=== PATIENT | male | born 1935 | race Caucasian/White ===

== ENCOUNTER 2019-10-15 17:18 | Emergency (ER) | payer MEDICARE ==
--- OUTSIDE RECORDS SUMMARY | 2019-10-15 17:26 | XMS REPORT ---
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 Clinician (SIG) Name Name No Known No Known No None None None Medications Medications For This For This Patient Patient Procedures This patient has no known procedures. Results This patient has no known results.
--- OUTSIDE RECORDS SUMMARY | 2019-10-15 17:26 | XMS REPORT ---
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 Clinician (SIG) Name Name polyethylen polyethylen Yes Jacqueline Unknown Unknown e glycol e glycol 10-14 [facility] 3350 17 3350 17 gram/dose gram/dose oral powder oral powder apixaban 5 apixaban 5 2019- Yes Jacqueline Unknown Unknown mg tablet mg tablet 10-14 [facility] Procedures This patient has no known procedures. Results This patient has no known results.
--- NOTE | 2019-10-15 19:42 | UC ---
Respiratory Complaint HPI - HPI Summary HPI Summary: BROUGHT BY SON WITH 2 WEEKS OF COUGHING, CONGESTION AND FATIGUE. NO FEVER, NAUSEA/VOMITING. ALSO COMPLAINING OF SEVERAL DAYS OF BILATERAL FLANK PAIN. PATIENT HAS A HISTORY OF FREQUENT UTI. JUST MOVED HERE FROM [place] 3 WEEKS AGO TO BE CLOSER TO FAMILY. - History of Current Complaint Chief Complaint: UCBackPain Stated Complaint: RESP COMPLAINT Time Seen by Provider: 10/15/19 19:13 Hx Obtained From: Patient, Family/Back Tender Cylinder - SON Onset/Duration: Gradual Onset, Lasting Weeks, Still Present Timing: Constant Severity Initially: Moderate Severity Currently: Moderate Pain Intensity: 7 Pain Scale Used: 0-10 Numeric Character: Cough: Nonproductive Aggravating Factors: Recumbent Position Alleviating Factors: Nothing Associated Signs And Symptoms: Positive: URI, Nasal Congestion. Negative: Dyspnea, Fever, Wheezing - Allergies/Home Medications Allergies/Adverse Reactions: Allergies Allergy/AdvReac Type Severity Reaction Status Date / Time No Known Allergies Allergy Verified 10/15/19 17:43 Home Medications: Home Medications Apixaban [Eliquis] 10/15/19 [History] PMH/Surg Hx/FS Hx/Imm Hx Cardiovascular History: Deep Vein Thrombosis - Surgical History Surgery Procedure, Year, and Place: pt broke his back 4 months ago and he had the "cement put in " also had hip surgery - Family History Known Family History: Positive: Unknown - Social History Alcohol Use: None Substance Use Type: None Smoking Status (MU): Never Smoked Tobacco Review of Systems All Other Systems Reviewed And Are Negative: Yes Constitutional: Positive: Fatigue ENT: Positive: Sore Throat, Nasal Discharge Respiratory: Positive: Cough. Negative: Shortness Of Breath Cardiovascular: Positive: Negative Gastrointestinal: Positive: Negative Genitourinary: Positive: Other - FLANK PAIN Musculoskeletal: Positive: Edema Physical Exam Triage Information Reviewed: Yes Appearance: Well-Appearing, No Pain Distress, Well-Nourished, Other: - GENERAL RESTING TREMOR Vital Signs: Initial Vital Signs Temp 99.5 F 10/15/19 17:33 Pulse 102 10/15/19 17:33 Resp 16 10/15/19 17:33 BP 131/84 10/15/19 17:33 Pulse Ox 99 10/15/19 17:33 Vital Signs Reviewed: Yes Eyes: Positive: Conjunctiva Clear ENT: Positive: Hearing grossly normal Neck: Positive: Supple, Nontender, No Lymphadenopathy Respiratory: Positive: No respiratory distress, No accessory muscle use, Crackles - BILATERAL BASES Cardiovascular: Positive: Tachycardia, Other: - IRREGULARLY IRREGULAR Abdomen Description: Positive: Soft Musculoskeletal: Positive: Edema @ - 1+ PITTING EDEMA Neurological: Positive: Alert Psychological: Positive: Normal Response To Family, Age Appropriate Behavior Skin: Negative: Rashes Diagnostics - EKG Cardiac Rate: NL - 96BPM Cardiac Rhythm: AFib: New Respiratory Course/Dx - Course Course Of Treatment: PATIENT BROUGHT TO URGENT CARE BY HIS SON WITH A COMPLAINT OF 2 WEEKS OF PERSISTENT COUGH AND FATIGUE. NO FEVER, NAUSEA/VOMITING. HE IS ALSO COMPLAINING OF BILATERAL FLANK PAIN. SON REPORTS THAT AT BASELINE PATIENT HAS A HARD TIME PRODUCING URINE AND HAS A HISTORY OF FREQUENT UTI. ON EXAM PATIENT IS MILDLY TACHYCARDIC WITH AN IRREGULAR HEART BEAT AND BILATERAL RALES IN THE LUNG BASES. EKG WITH AFIB. PT DENIES H/O AFIB IN THE PAST. HE HAS MILD PITTING EDEMA IN HIS FEET. HE ALSO HAS A HISTORY OF DVT AND IS ON ELIQUIS. HE REQUIRES A HIGHER LEVEL OF SERVICE THAN WHAT IS AVAILABLE IN THE URGENT CARE. CONSIDER UTI, RECURRENT DVT/PE, PNEUMONIA, HEART FAILURE IN THE SETTING OF POSSIBLY NEW ONSET AFIB. - Differential Dx/Diagnosis Provider Diagnosis: Atrial fibrillation, Bilateral flank pain, Cough - Physician Notification/Consults Discussed Patient Care With: Chad Garcia - TO [facility] BY AMBULANCE Time Discussed With Above Provider: 19:55 Instructed by Provider To: Will See In ED Discharge ED - Sign-Out/Discharge Documenting (check all that apply): Patient Departure All imaging exams completed and their final reports reviewed: No Studies - Discharge Plan Condition: Stable Disposition: TRANS HIGHER LVL OF CARE FAC Referrals: Drake Cooper MD [Primary Care Provider] - - Billing Disposition and Condition Condition: STABLE Disposition: Trans Higher Lvl of Care Fac
[2019-10-15 19:58] VITALS: BP 134/68
== END 2019-10-15 19:55 | disposition short-term general hospital (02) ==
LOC: UCEAST 17:18
DX: J40 Bronchitis, not specified as acute or chronic (principal); R05 Cough; I48.91 Unspecified atrial fibrillation; R10.9 Unspecified abdominal pain; R53.83 Other fatigue; J02.9 Acute pharyngitis, unspecified; Z79.01 Long term (current) use of anticoagulants; I45.2 Bifascicular block; I50.9 Heart failure, unspecified
CPT/HCPCS: 93005; 99213; G0463

== ENCOUNTER 2019-10-15 20:20 | Emergency (ER) | payer MEDICARE ==
[2019-10-15 21:02] LABS: ABS Basophils 0.1 10^3/ul (0-0.2); ABS Eosinophils 0.5 10^3/ul (0-0.6); ABS Lymphocytes 1.9 10^3/ul (1.0-4.8); ABS Monocytes 0.7 10^3/ul (0-0.8); ABS Neutrophils 3.6 10^3/ul (1.5-7.7); Eosinophil % 6.9 %; Hematocrit 43 % (42-52); Hemoglobin 14.8 g/dL (14.0-18.0); Lymphocyte % 28.2 %; Mean Corpuscular HGB Conc 34 g/dL (31-36); Mean Corpuscular Hemoglobin 30 pg (27-31); Mean Corpuscular Volume 86 fL (80-94); Mean Platelet Volume 6.8 fL (7.4-10.4); Platelet Count 247 10^3/uL (150-450); Red Blood Count 5.01 10^6 /uL (4.18-5.48); Red Cell Distribution Width 16 % (10-15); White Blood Count 6.6 10^3/uL (3.5-10.8)
--- NOTE | 2019-10-15 21:18 | ED ---
Back Pain - HPI Summary HPI Summary: Pt is an 84 y/o M presenting to the ED brought in by EMS from for R flank pain. He states he has had R-sided flank pain with a productive cough w/ yellow phlegm that hes had for about 3 weeks. He also reports sore throat, rhinorrhea , lightheadedness, and headache and chest pain for a couple of days. He denies fever, chills, syncope, SOB, and N/V/D. - History of Current Complaint Chief Complaint: EDGeneral Stated Complaint: FLANK PAIN PER EMS Time Seen by Provider: 10/15/19 20:56 Hx Obtained From: Patient Onset/Duration: Gradual Onset, Lasting Weeks, Still Present Onset/Duration: Started Weeks Ago, Still Present Timing: Constant, Lasting Weeks Back Pain Location: Is Discrete @ - R flank pain Severity Initially: Moderate Severity Currently: Severe Pain Intensity: 8 Pain Scale Used: 0-10 Numeric Aggravating Symptom(s): Nothing Alleviating Symptom(s): Nothing Associated Signs And Symptoms: Negative: Fever - Allergies/Home Medications Allergies/Adverse Reactions: Allergies Allergy/AdvReac Type Severity Reaction Status Date / Time No Known Allergies Allergy Verified 10/15/19 17:43 Home Medications: Home Medications Apixaban* [Eliquis*] 5 mg PO DAILY 10/15/19 [History Confirmed 10/15/19] PMH/Surg Hx/FS Hx/Imm Hx Previously Healthy: Yes Endocrine/Hematology History: Denies: Hx Diabetes Cardiovascular History: Reports: Hx Atrial Fibrillation - new onset 10/15, Hx Congestive Heart Failure - Surgical History Surgery Procedure, Year, and Place: pt broke his back 4 months ago and he had the "cement put in " also had hip surgery - Immunization History Immunizations Up to Date: Yes Infectious Disease History: No Infectious Disease History: Denies: Traveled Outside the [place] in Last 30 Days - Family History Known Family History: Negative: Renal Disease - Social History Alcohol Use: None Hx Substance Use: No Substance Use Type: Reports: None Hx Tobacco Use: Yes Smoking Status (MU): Former Smoker Review of Systems Negative: Fever, Chills Positive: Sore Throat, Other - rhinorrhea Positive: Chest Pain Positive: Cough. Negative: Shortness Of Breath Negative: Vomiting, Diarrhea, Nausea Neurological: Other - lightheadedness Positive: Headache. Negative: Syncope All Other Systems Reviewed And Are Negative: Yes Physical Exam - Summary Physical Exam Summary: Appearance: Elderly man lying on the stretcher in NAD Skin: Warm, dry, no obvious rash Eyes: sclera anicteric, no conjunctival pallor ENT: mucous membranes moist, pharynx appears normal Neck: Supple, nontender Respiratory: Clear to auscultation, no signs of respiratory distress Cardiovascular: Normal S1, S2. No murmurs. Normal distal pulses in tibial and radial bilaterally. Abdomen: Soft, nontender, normal active bowel sounds present Musculoskeletal: Normal, Strength/ROM Intact Neurological: A&Ox3, awake and alert, mentation is normal, speech is fluent and appropriate Psychiatric: affect is normal, does not appear anxious or depressed Triage Information Reviewed: Yes Vital Signs On Initial Exam: Initial Vitals Temp Pulse Resp BP Pulse Ox 98.9 F 91 18 153/79 97 10/15/19 20:22 10/15/19 20:22 10/15/19 20:22 10/15/19 20:22 10/15/19 20:22 Vital Signs Reviewed: Yes Procedures - Sedation Patient Received Moderate/Deep Sedation with Procedure: No Diagnostics - Vital Signs Vital Signs Temp Pulse Resp BP Pulse Ox 10/15/19 20:34 95 153/79 96 10/15/19 20:22 98.9 F 91 18 153/79 97 - Laboratory Lab Results: Lab Results 10/15/19 Range/Units 19:00 WBC 6.6 (3.5-10.8) 10^3/uL RBC 5.01 (4.18-5.48) 10^6 /uL Hgb 14.8 (14.0-18.0) g/dL Hct 43 (42-52) % MCV 86 (80-94) fL MCH 30 (27-31) pg MCHC 34 (31-36) g/dL RDW 16 H (10-15) % Plt Count 247 (150-450) 10^3/uL MPV 6.8 L (7.4-10.4) fL Neut % (Auto) 53.8 % Lymph % (Auto) 28.2 % Barren % (Auto) 10.3 % Eos % (Auto) 6.9 % Baso % (Auto) 0.8 % Absolute Neuts (auto) 3.6 (1.5-7.7) 10^3/ul Absolute Lymphs (auto) 1.9 (1.0-4.8) 10^3/ul Absolute Monos (auto) 0.7 (0-0.8) 10^3/ul Absolute Eos (auto) 0.5 (0-0.6) 10^3/ul Absolute Basos (auto) 0.1 (0-0.2) 10^3/ul Absolute Nucleated RBC 0.0 10^3/ul Nucleated RBC % 0.0 Result Diagrams: 10/15/19 19:00 10/15/19 19:00 Lab Statement: Any lab studies that have been ordered have been reviewed, and results considered in the medical decision making process. - Radiology CXR Radiology Interpretation Completed By: ED Physician Summary of Radiographic Findings: No acute process. Pending official radiology report. - EKG 2100 Cardiac Rate: NL - 93bpm EKG Rhythm: Sinus Rhythm ST Segment: Normal Ectopy: None Summary of EKG Findings: EKG at 2100 shows NSR at 93 BPM, P waves, QRS complex, and T waves are within normal limits, T waves and intervals are normal, no ischemic changes. This is a normal EKG. ED physician has reviewed and interpreted this EKG. Back Pain Course/Dx - Course Course Of Treatment: Pt is an 84 y/o M presenting to the ED brought in by EMS from for R flank pain. He states he has had R-sided flank pain with a productive cough w/ yellow phlegm that hes had for about 3 weeks. He also reports sore throat, rhinorrhea, lightheadedness, and headache and chest pain for a couple of days. He denies fever, chills, syncope, SOB, and N/V/D. Physical exam nml. EKG at 2100 shows NSR at 93 BPM, P waves, QRS complex, and T waves are within normal limits, T waves and intervals are normal, no ischemic changes. This is a normal EKG. ED physician has reviewed and interpreted this EKG. CXR shows no acute process, pending official radiology report. Pt will be d/c'ed with dx of bronchitis. He is stable and agreeable with this plan. - Diagnoses Differential Diagnosis/HQI/PQRI: Positive: Other - arrhythmia, ACS, pneumonia Provider Diagnoses: Bronchitis Discharge ED - Sign-Out/Discharge Documenting (check all that apply): Patient Departure - Discharge Plan Condition: Good Disposition: HOME Prescriptions: DOXYcycline CAP(*) [DOXYcycline 100MG CAP(*)] 100 mg PO BID #20 cap Patient Education Materials: Acute Bronchitis (ED) Referrals: Drake Cooper MD [Primary Care Provider] - 1 Week (if not improving ) - Billing Disposition and Condition Condition: GOOD Disposition: Home - Attestation Statements Document Initiated by Scribe: Yes Documenting Scribe: Katherin Mullins Provider For Whom Tony is Documenting (Include Credential): Chad Garcia MD. Scribe Attestation: Katherin Hurt scribed for Chad Garcia MD. on 10/16/19 at 1906. Scribe Documentation Reviewed: Yes Provider Attestation: The documentation as recorded by the Katherin bustillo accurately reflects the service I personally performed and the decisions made by Chad feng MD. Status of Scribe Document: Viewed
[2019-10-15 21:19] LABS: Albumin 4.1 g/dL (3.2-5.2); Albumin/Globulin Ratio 1.4 (1-3); BUN/Creatinine Ratio 18.5 (8-20); Calcium 9.3 mg/dL (8.6-10.3); EGFR African American 110.4 (>60); EGFR Non-African American 91.2 (>60); Total Bilirubin 0.4 mg/dL (0.2-1.0); Total Protein 7.1 g/dL (6.4-8.9)
[2019-10-15 22:15] LABS: Potassium 3.8 mmol/L (3.5-5.0)
[2019-10-15] MEDS ORDERED: DOXYcycline CAP(*) 100 MG PO ONE (22:57)
[2019-10-15 23:33] VITALS: BP 144/81
== END 2019-10-15 23:51 | disposition home or self-care (01) ==
LOC: ED 20:20
DX: J40 Bronchitis, not specified as acute or chronic (principal); I45.2 Bifascicular block; I50.9 Heart failure, unspecified; Z79.01 Long term (current) use of anticoagulants; Z87.891 Personal history of nicotine dependence
CPT/HCPCS: 36415; 71046; 80053; 83605; 83880; 84484; 85025; 93005; 99284; A9270-GY

== ENCOUNTER 2019-12-21 17:08 | Emergency (ER) | payer MEDICARE ==
--- NOTE | 2019-12-21 17:24 | ED ---
Head Injury - HPI Summary HPI Summary: Patient is an 84 y/o M presenting to the ED for a chief complaint of occipital head injury after hitting his head 6 days ago during a fall. At that time, patient states he lost his balance and fell into his bathtub. After the fall, he endorses a loss of consciousness for "a second or two." He notes intermittent nausea and neck pain, but is unsure if this is new. For the last 3 days, he also reports having a headache that he rates as a 6/10 in severity. Patient also has problems with weight bearing on the left side which is chronic and unchanged from baseline. Patient denies blurred vision, myalgia, or ecchymosis. No aggravating or alleviating factors are reported. He is on Eliquis. PSHx is significant for recent right hip replacement. - History Of Current Complaint Chief Complaint: EDHeadInjury Stated Complaint: HEADACHE PER PT Time Seen by Provider: 12/21/19 17:13 Hx Obtained From: Patient Mechanism Of Injury: Fall From A Standing Position Onset/Duration: Traumatic - Fall, Still Present Severity Currently: Moderate Severity Initially: Moderate Pain Intensity: 6 Pain Scale Used: 0-10 Numeric Location of Head Injury: Occipital Location: Diffuse Character: Unable to describe Aggravating Factor(s): Other: - Nothing Alleviating Factor(s): Other: - Nothing Associated Signs And Symptoms: LOC (Time In Secs./Mins/Hrs) - 1-2 seconds, resolved, Neck Pain, Nausea, Headache Anticoagulant Therapy: Blood Thinners - Eliquis - Allergies/Home Medications Allergies/Adverse Reactions: Allergies Allergy/AdvReac Type Severity Reaction Status Date / Time No Known Allergies Allergy Verified 12/21/19 17:12 Home Medications: Home Medications Apixaban* [Eliquis*] 5 mg PO DAILY 10/15/19 [History Confirmed 10/15/19] DOXYcycline CAP(*) [DOXYcycline 100MG CAP(*)] 100 mg PO BID #20 cap 10/15/19 [Rx ] PMH/Surg Hx/FS Hx/Imm Hx Previously Healthy: Yes Endocrine/Hematology History: Reports: Hx Anticoagulant Therapy - Eliquis Denies: Hx Diabetes Cardiovascular History: Reports: Hx Atrial Fibrillation - new onset 10/15, Hx Congestive Heart Failure Sensory History: Denies: Hx Legally Blind, Hx Deafness Opthamlomology History: Denies: Hx Legally Blind EENT History: Denies: Hx Deafness - Surgical History Surgical History: Yes Surgery Procedure, Year, and Place: pt broke his back 4 months ago and he had the "cement put in " also had hip surgery Infectious Disease History: No Infectious Disease History: Denies: Traveled Outside the [place] in Last 30 Days - Family History Known Family History: Negative: Renal Disease - Social History Occupation: Retired Lives: With Family Alcohol Use: None Hx Substance Use: No Substance Use Type: Reports: None Hx Tobacco Use: Yes Smoking Status (MU): Former Smoker Review of Systems Negative: Blurred Vision Positive: Nausea Positive: Myalgia - Positive neck pain; negative other myalgia, Other - Positive problem with weight bearing on the left side, unchanged from baseline Negative: Bruising Positive: Headache, Syncope - LOC, resolved All Other Systems Reviewed And Are Negative: Yes Physical Exam - Summary Physical Exam Summary: Constitutional: Well-developed, Well-nourished, Alert. (-) Distressed Skin: Warm, Dry HENT: Normocephalic; Atraumatic Eyes: Conjunctiva normal Neck: Musculoskeletal ROM normal neck. (-) JVD, (-) Stridor, (-) Nuchal rigidity Cardio: Rhythm regular, rate normal, Heart sounds normal; Intact distal pulses; Radial pulses are 2+ and symmetric. (-) Murmur Pulmonary/Chest wall: Effort normal. (-) Respiratory distress, (-) Wheezes, (-) Rales Abd: Soft, (-) tenderness, (-) Distension, (-) Guarding, (-) Rebound Musculoskeletal: (-) Edema. Paraspinal cervical spine tenderness. No midline CTL tenderness. Lymph: (-) Cervical adenopathy Neuro: Alert, Oriented x3 Psych: Mood and affect Normal Triage Information Reviewed: Yes Vital Signs On Initial Exam: Initial Vitals Temp Pulse Resp BP Pulse Ox 97.8 F 73 19 179/98 96 12/21/19 17:10 12/21/19 17:10 12/21/19 17:10 12/21/19 17:10 12/21/19 17:10 Vital Signs Reviewed: Yes - Rianna Coma Scale Best Eye Response: 4 - Spontaneous Best Motor Response: 6 - Obeys Commands Best Verbal Response: 5 - Oriented Coma Scale Total: 15 Procedures - Sedation Patient Received Moderate/Deep Sedation with Procedure: No Diagnostics - Vital Signs Vital Signs Temp Pulse Resp BP Pulse Ox 12/21/19 17:10 97.8 F 73 19 179/98 96 - Laboratory Lab Statement: Any lab studies that have been ordered have been reviewed, and results considered in the medical decision making process. - CT Brain CT CT Interpretation Completed By: Radiologist Summary of CT Findings: Brain CT IMPRESSION: Age-appropriate atrophy without evidence of intracranial mass or hemorrhage. Reviewed by Dr. Hernandez. Cervical Spine CT CT Interpretation Completed By: Radiologist Summary of CT Findings: Cervical Spine CT IMPRESSION: Multilevel degenerative disc disease without definite evidence of fracture. There is suggestion of a well-circumscribed nodule in the left upper lobe measuring 0.[address] Hernandez. Head Injury Course/Dx Course Of Treatment: 84 y/o male on eliquis p/w head injury after fall. - GCS 15. Mild paraspinal C spine tenderness. CT brain negative and Cspine negative for fracture. Ambulating at baseline. - Diagnoses Provider Diagnoses: Fall, Headache Discharge ED - Sign-Out/Discharge Documenting (check all that apply): Patient Departure - Discharge - Discharge Plan Condition: Stable Disposition: HOME Patient Education Materials: Fall Prevention for Older Adults (ED), Acute Headache (ED) Referrals: Drake Cooper MD [Medical Doctor] - Additional Instructions: You were seen in the emergency department for take after fall. Your CT scan did not show any fractures or bleeding of the brain. It did show a small nodule on your left lung which you can follow up w your doctor about. If any studies were not completed at the time of discharge you will be called with the relevant results. Please follow up with your primary care doctor in next 2-3 days and return to emergency department for severe headaches, weakness, worsening or concerning symptoms. It was a pleasure taking care of you today. - Billing Disposition and Condition Condition: STABLE Disposition: Home - Attestation Statements Document Initiated by Scribe: Yes Documenting Scribe: Niya Campbell Provider For Whom Scribe is Documenting (Include Credential): Angelica Hernandez MD Scribe Attestation: Niya Hurt, scribed for Angelica Hernandez MD on 12/21/19 at 1813. Scribe Documentation Reviewed: Yes Provider Attestation: The documentation as recorded by the donovanibNiya merchant accurately reflects the service I personally performed and the decisions made by me, Angelica Hernandez MD Status of Tony Document: Viewed
--- OUTSIDE RECORDS SUMMARY | 2019-12-21 18:12 | XMS REPORT ---
:1935 Author Organization [facility] Care Team Providers Name Role Phone Unavailable Unavailable Unavailable Problems Condition Condition Condition Status Onset Resolution Last Treating Comments Name Details Category Date Date Treatment Clinician Date Bifascicula Bifascicula Diagnosis Active Chris r block r block Vj [id number] Unspecified Unspecified Diagnosis Active Chris atrial atrial 10-13 Vj fibrillatio fibrillatio [id number] n n Heart Heart Diagnosis Active Chris failure, failure, -17 Vj unspecified unspecified [id number] Age-related Age-related Diagnosis Active Chris physical physical 09-24 Vj debility debility [id number] Pain in Pain in Diagnosis Active Chris right right 1 Vj shoulder shoulder [id number] 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 hip joint snf snf Diagnosis Active Chris (current) (current) Vj use of use of [id number] anticoagula anticoagula nts nts Pain frequent Pain Mgmt Active Johana pain - (Mitchell) 09:50: Hassan 00 [id number] Cardio edema Cardiovasc Active Johana ular - (Mitchell) 09:50: Hassan 00 [id number] Respiratory dyspnea Respirator Active 0 Johana present y - (Mitchell) 09:50: Hassan 00 [id number] Endo/Basim anti-coagul Endo/Basim Active Johana ation - (Mitchell) therapy 09:50: Hassan 00 [id number] Sensory impaired Sensory Active 0 Johana hearing - (Mitchell) 09:50: Hassan 00 [id number] Integument skin Integument Active Johana integrity - (Mitchell) risk 09:50: Hassan 00 [id number] Elimination urinary Eliminatio Active 2020-0 Johana incontinenc n 10-14 (Mitchell) e 09:50: Hassan [id number] Neuro confusion Neuro/Emot Active 2020-0 Johana present ion 10-14 (Mitchell) 09:50: Hassan [id number] Neuro impaired Neuro/Emot Active 2020-0 Johana decision-ma ion 10-14 (Mitchell) otilia 09:50: Hassan [id number] Neuro memory Neuro/Emot Active 2019-0 Johana deficit ion 10-14 (Mitchell) needing 09:50: Hassan supervision 00 [id number] Activity ADL Activity Active 2019-0 Johana assistance 10-14 (Mitchell) required 09:50: Hassan [id number] Activity self-care Activity Active 2019-0 Johana deficit 10-14 (Mitchell) 09:50: Hassan [id number] Safety cannot be Safety Active 2019-0 Johana left alone 10-14 (Mitchell) 09:50: Hassan [id number] Safety fall risk Safety Active 2020-0 Johana factor 10-14 (Mitchell) present 09:50: Hassan [id number] Safety risk for Safety Active 2019-0 Johana hospitaliza 10-14 (Mitchell) tion 09:50: Hassan [id number] Medication oral med Meds Active 2019-0 Johana assistance 10-14 (Mitchell) required 09:50: Hassan [id number] Musculoskel transfer Musculoske Active 2019-0 Johana etal assistance letal 10-14 (Mitchell) required 09:50: Hassan [id number] Musculoskel requires Musculoske Active 2019-0 Johana etal human letal 10-14 (Mitchell) assist to 09:50: Hassan leave home 00 [id number] Activity knowledge/s Activity Active 2020-0 Chris kill 10-14 Vj deficit: pt 16:30: [id number] Safety knowledge/s Safety Active 2020-0 Chris kill 10-14 Vj deficit: pt 16:30: [id number] Safety can be left Safety Active 2020-0 Chris alone for 10-14 Vj only short 16:30: [id number] periods 00 Bed mobility/tr PT/OT: Bed Active 2020-0 Chris Mobility/Tr ansfer Mobility/T 10-14 Vj ansfer device ransfer 16:30: [id number] present 00 Bed transfer PT/OT: Bed Active 2020-0 Chris Mobility/Tr deficit: Mobility/T 1- Vj biggs sit/stand ransfer 16:30: [id number] 00 Bed transfer PT/OT: Bed Active 2019-0 Chris Mobility/Tr deficit: Mobility/T 10-14 Vj biggs toilet/comm ransfer 16:30: [id number] ode 00 Bed knowledge/s PT/OT: Bed Active 2019-0 Chris Mobility/Tr kill Mobility/T 10-14 Vj ansfer deficit: pt ransfer 16:30: [id number] 00 Bed bed PT/OT: Bed Active 2019-0 Chris Mobility/Tr mobility Mobility/T 10-14 Vj sheehanfer deficit ransfer 16:30: [id number] 00 Balance/End balance/process coordinator PT/OT: Active 2019-0 Chris urance rdination Balance/En 10-14 Vj deficit durance 16:30: [id number] Balance/End endurance PT/OT: Active 2019-0 Chris urance deficit Balance/En 10-14 Vj durance 16:30: [id number] Balance/End knowledge/s PT/OT: Active 2019-0 Chris urance kill Balance/En 10-14 Vj deficit: pt durance 16:30: [id number] 00 Balance/End knowledge/s PT/OT: Active 2019-0 Chris urance kill Balance/En 10-14 Vj deficit: cg durance 16:30: [id number] 00 Gait/Locomo gait PT/OT: Active 2019-0 Chris tion assistive Gait/Locom - Vj problems device otion 16:30: [id number] present 00 Gait/Locomo knowledge/s PT/OT: Active 2019-0 Chris tion kill Gait/Locom - Vj problems deficit: pt otion 16:30: [id number] 00 Gait/Locomo gait PT/OT: Active 2019-0 Chris tion deficit Gait/Locom - Vj problems otion 16:30: [id number] 00 Respiratory oxygen Respirator Active 2020-0 Chris treatments y 2-13 Vj in home [id number] Bed transfer PT/OT: Bed Active 2020-0 Chris Mobility/Tr deficit: Mobility/T 2-20 Vj ansfer shower/tub ransfer 15:15: [id number] 00 Bed transfer PT/OT: Bed Active 2019- Chris Mobility/Tr deficit: Mobility/T 2-20 Vj biggs vehicle ransfer 15:15: [id number] 00 Gait/Locomo stair PT/OT: Active Chris tion management Gait/Locom 2-20 Vj problems req otion 15:15: [id number] 00 Allergies, Adverse Reactions, Alerts Allergy Allergy Status [...] powder oral powder apixaban 5 apixaban 5 Yes Jacqueline Unknown Unknown mg tablet mg tablet 10-14 [place] CLARK Vital Signs Vital Name Observation Time Observation Value Comments SYSTOLIC mm[Hg] 2019-11-13 18:10:29 140 mm[Hg] mm[Hg] Method: Sit SYSTOLIC mm[Hg] 2019-10-16 18:10:01 112 mm[Hg] mm[Hg] Method: Stand DIASTOLIC mm[Hg] 2019-11-13 18:10:29 70 mm[Hg] mm[Hg] Method: Sit DIASTOLIC mm[Hg] 2019-10-16 18:10:01 64 mm[Hg] mm[Hg] Method: Stand PULSE 2019-11-13 18:10:29 65 /min /min RESP RATE 2019-10-16 18:10:01 16 /min /min TEMP 2019-10-15 18:10:00 98.3 [degF] Procedures This patient has no known procedures. Results This patient has no known results.
--- OUTSIDE RECORDS SUMMARY | 2019-12-21 18:12 | XMS REPORT ---
:1935 Author Organization [facility] Care Team Providers Name Role Phone Unavailable Unavailable Unavailable Problems Condition Condition Condition Status Onset Resolution Last Treating Comments Name Details Category Date Date Treatment Clinician Date Bifascicula Bifascicula Diagnosis Active Chris r block r block Vj [id number] Unspecified Unspecified Diagnosis Active Chris atrial atrial - Vj fibrillatio fibrillatio [id number] n n Heart Heart Diagnosis Active Chris failure, failure, 10-10 Vj unspecified unspecified [id number] Age-related Age-related Diagnosis Active Chris physical physical 1 Vj debility debility [id number] Pain in Pain in Diagnosis Active Chris right right 1 Vj shoulder shoulder [id number] Presence of Presence of Diagnosis Active Chris right right Vj artificial artificial [id number] hip joint 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) (current) Vj use of use of [id number] anticoagula anticoagula nts nts Pain frequent Pain Mgmt Resolve 2019-12-04 Johana pain d 10-14 15:40:00 (Mitchell) 09:50: Hassan 00 [id number] Cardio edema Cardiovasc Resolve 2019-12-04 Johana ular d 10-14 15:40:00 (Mitchell) 09:50: Hassan 00 [id number] Respiratory dyspnea Respirator Resolve 2019-12-04 Johana present y d 10-14 15:40:00 (Mitchell) 09:50: Hassan 00 [id number] Endo/Basim anti-coagul Endo/Basim Resolve 2019-12-04 Johana ation d 10-14 15:40:00 (Mitchell) therapy 09:50: Hassan 00 [id number] Sensory impaired Sensory Resolve 2019-12-04 Johana hearing d 10-14 15:40:00 (Mitchell) 09:50: Hassan 00 [id number] Integument skin Integument Resolve 2019-12-04 Johana integrity d 10-14 15:40:00 (Mitchell) risk 09:50: Hassan 00 [id number] Elimination urinary Eliminatio Resolve 2019-12-04 Johana incontinenc n d 10-14 15:40:00 (Mitchell) e 09:50: Hassan 00 [id number] Neuro confusion Neuro/Emot Resolve 2019-12-04 Johana present ion d 10-14 15:40:00 (Mitchell) 09:50: Hassan 00 [id number] Neuro impaired Neuro/Emot Resolve 2019-12-04 Johana decision-ma ion d 10-14 15:40:00 (Mitchell) otilia 09:50: Hassan 00 [id number] Neuro memory Neuro/Emot Resolve 2019-12-04 Johana deficit ion d 10-14 15:40:00 (Mitchell) needing 09:50: Hassan supervision 00 [id number] Activity ADL Activity Resolve 2019-12-04 Johana assistance d 10-14 15:40:00 (Mitchell) required 09:50: Hassan [id number] Activity self-care Activity Resolve 2019-12-04 Johana deficit d 10-14 15:40:00 (Mitchell) 09:50: Hassan 00 [id number] Safety cannot be Safety Resolve 2019-12-04 Johana left alone d 10-14 15:40:00 (Mitchell) 09:50: Hassan 00 [id number] Safety fall risk Safety Resolve 2019-12-04 Johana factor d 10-14 15:40:00 (Mitchell) present 09:50: Hassan [id number] Safety risk for Safety Resolve 2019-12-04 Johana hospitaliza d 10-14 15:40:00 (Mitchell) tion 09:50: Hassan 00 [id number] Medication oral med Meds Resolve 2019-12-04 Johana assistance d 10-14 15:40:00 (Mitchell) required 09:50: Hassan 00 [id number] Musculoskel transfer Musculoske Resolve 2019-12-04 Johana etal assistance letal d 10-14 15:40:00 (Mitchell) required 09:50: Hassan 00 [id number] Musculoskel requires Musculoske Resolve 2019-12-04 Johana etal human letal d 10-14 15:40:00 (Mitchell) assist to 09:50: Hassan leave home 00 [id number] Activity knowledge/s Activity Resolve 2019-12-04 Chris kill d 10-14 15:40:00 Vj deficit: pt 16:30: [id number] 00 Safety knowledge/s Safety Resolve 2019-12-04 Chris kill d 10-14 15:40:00 Vj deficit: pt 16:30: [id number] 00 Safety can be left Safety Resolve 2019-12-04 Chris alone for d 10-14 15:40:00 Vj only short 16:30: [id number] periods 00 Bed mobility/tr PT/OT: Bed Resolve 2019-12-04 Chris Mobility/Tr ansfer Mobility/T d 10-14 15:40:00 Vj sheehanfer device ransfer 16:30: [id number] present 00 Bed transfer PT/OT: Bed Resolve 2019-12-04 Chris Mobility/Tr deficit: Mobility/T d 10-14 15:40:00 Vj biggs sit/stand ransfer 16:30: [id number] 00 Bed transfer PT/OT: Bed Resolve 2019-12-04 Chris Mobility/Tr deficit: Mobility/T d 10-14 15:40:00 Vj sheehanfer toilet/comm ransfer 16:30: [id number] ode 00 Bed knowledge/s PT/OT: Bed Resolve 2019-12-04 Chris Mobility/Tr kill Mobility/T d 10-14 15:40:00 Vj ansfer deficit: pt ransfer 16:30: [id number] 00 Bed bed PT/OT: Bed Resolve 2019-12-04 Chris Mobility/Tr mobility Mobility/T d 10-14 15:40:00 Vj ansfer deficit ransfer 16:30: [id number] 00 Balance/End balance/wedding day coordinator PT/OT: Resolve 2019-12-04 Chris urance rdination Balance/En d 10-14 15:40:00 Vj deficit durance 16:30: [id number] 00 Balance/End endurance PT/OT: Resolve 2019-12-04 Chris urance deficit Balance/En d 10-14 15:40:00 Vj durance 16:30: [id number] 00 Balance/End knowledge/s PT/OT: Resolve 2019-12-04 Chris urance kill Balance/En d 10-14 15:40:00 Vj deficit: pt durance 16:30: [id number] 00 Balance/End knowledge/s PT/OT: Resolve 2019-12-04 Hcris urance kill Balance/En d 10-14 15:40:00 Vj deficit: cg durance 16:30: [id number] 00 Gait/Locomo gait PT/OT: Resolve 2019-12-04 Chris tion assistive Gait/Locom d 10-14 15:40:00 Vj problems device otion 16:30: [id number] present 00 Gait/Locomo knowledge/s PT/OT: Resolve 2019-12-04 Chris tion kill Gait/Locom d 10-14 15:40:00 Vj problems deficit: pt otion 16:30: [id number] 00 Gait/Locomo gait PT/OT: Resolve 2019-12-04 Chris tion deficit Gait/Locom d 10-14 15:40:00 Vj problems otion 16:30: [id number] 00 Respiratory oxygen Respirator Resolve 2019-12-04 Chris treatments y d 2-13 15:40:00 Vj in home [id number] Bed transfer PT/OT: Bed Resolve 2019-12-04 Chris Mobility/Tr deficit: Mobility/T d 2-20 15:40:00 Vj ansfer shower/tub ransfer 15:15: [id number] 00 Bed transfer PT/OT: Bed Resolve 2019-12-04 Chris Mobility/Tr deficit: Mobility/T d 2-20 15:40:00 Vj ansfer vehicle ransfer 15:15: [id number] 00 Gait/Locomo stair PT/OT: Resolve 2019-12-04 Chris tion management Gait/Locom d 2-20 15:40:00 Vj problems req otion 15:15: [id number] 00 Allergies, Adverse Reactions, Alerts Allergy Allergy Status Severity Reaction(s) Onset Inactive Treating Comments Name Type Date Date Clinician Unknown None Active Unknown None Unknown No Known Allergies For This Patient Medications Ordered Filled Start Stop Current Ordering Indication Dosage Frequency Signature Comments Components Medication Medication Date Date Medication? Clinician (SIG) Name Name polyethylen polyethylen 2019- Yes Jacqueline Unknown Unknown e glycol e glycol 10-14 Newton CLARK 3350 17 3350 17 gram/dose gram/dose oral powder oral powder apixaban 5 apixaban 5 2019-0 Yes Jacqueline Unknown Unknown mg tablet mg tablet 10-14 [place] CLARK Vital Signs Vital Name Observation Time Observation Value Comments SYSTOLIC mm[Hg] 2019-12-06 18:10:52 150 mm[Hg] mm[Hg] Method: Sit SYSTOLIC mm[Hg] 2019-10-16 18:10:01 112 mm[Hg] mm[Hg] Method: Stand DIASTOLIC mm[Hg] 2019-12-06 18:10:52 76 mm[Hg] mm[Hg] Method: Sit DIASTOLIC mm[Hg] 2019-10-16 18:10:01 64 mm[Hg] mm[Hg] Method: Stand PULSE 2019-12-06 18:10:52 70 /min /min TEMP 2019-12-06 18:10:52 98.4 [degF] Procedures This patient has no known procedures. Results This patient has no known results.
--- OUTSIDE RECORDS SUMMARY | 2019-12-21 18:12 | XMS REPORT ---
:1935 Author Organization [facility] Care Team Providers Name Role Phone Unavailable Unavailable Unavailable Problems Condition Condition Condition Status Onset Resolution Last Treating Comments Name Details Category Date Date Treatment Clinician Date Bifascicula Bifascicula Diagnosis Active Chris r block r block Vj [id number] Unspecified Unspecified Diagnosis Active Chris atrial atrial 10-13 Vj fibrillatio fibrillatio [id number] n n Heart Heart Diagnosis Active Chris failure, failure, -17 Vj unspecified unspecified [id number] Age-related Age-related Diagnosis Active Chris physical physical 09-24 Vj debility debility [id number] Pain in Pain in Diagnosis Active Chris right right 1 Vj shoulder shoulder [id number] Presence of Presence of Diagnosis Active Chris right right Vj artificial artificial [id number] hip joint 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) (current) Vj use of use of [id number] anticoagula anticoagula nts nts Pain frequent Pain Mgmt Active Johana pain - (Mitchell) 09:50: Hassan 00 [id number] Cardio edema Cardiovasc Active Johana ular - (Mitchell) 09:50: Hassan 00 [id number] Respiratory dyspnea Respirator Active 0 Johana present y - (Mitchell) 09:50: Hassan 00 [id number] Endo/Basim anti-coagul Endo/Basim Active Johana ation - (Mitchell) therapy 09:50: Hassan 00 [id number] Sensory impaired Sensory Active 0 Johana hearing - (Mitchell) 09:50: Hassan 00 [id number] Integument skin Integument Active Johana integrity - (Mitchell) risk 09:50: Hassan [id number] Elimination urinary Eliminatio Active 2020-0 Johana incontinenc n 10-14 (Mitchell) e 09:50: Hassan [id number] Neuro confusion Neuro/Emot Active 2020-0 Johana present ion 10-14 (Mitchell) 09:50: Hassan [id number] Neuro impaired Neuro/Emot Active 2020-0 Johana decision-ma ion 10-14 (Mitchell) otilia 09:50: Hassan [id number] Neuro memory Neuro/Emot Active 2019-0 Johana deficit ion 10-14 (Mitchell) needing 09:50: Hassan supervision 00 [id number] Activity ADL Activity Active 2019-0 Johana assistance 10-14 (Mitchell) required 09:50: Hassan [id number] Activity self-care Activity Active 2019-0 Johana deficit 10-14 (Mitchell) 09:50: Hassan [id number] Safety cannot be Safety Active 2019-0 Johana left alone 10-14 (Mitchell) 09:50: Hassan [id number] Safety fall risk Safety Active 2020-0 Johana factor 10-14 (Mitchell) present 09:50: Hassan [id number] Safety risk for Safety Active 2019-0 Johana hospitaliza 10-14 (Mitchell) tion 09:50: Hassan [id number] Medication oral med Meds Active 2019-0 Johana assistance 10-14 (Mitchell) required 09:50: Hassan [id number] Musculoskel transfer Musculoske Active 2019-0 Johana etal assistance letal 10-14 (Mitchell) required 09:50: Hassan [id number] Musculoskel requires Musculoske Active 2019-0 Johana etal human letal 10-14 (Mitchell) assist to 09:50: Hassan leave home 00 [id number] Activity knowledge/s Activity Active 2020-0 Chris kill 10-14 Vj deficit: pt 16:30: [id number] Safety knowledge/s Safety Active 2020-0 Chris kill 10-14 Vj deficit: pt 16:30: [id number] 00 Safety can be left Safety Active 2020-0 Chris alone for 10-14 Vj only short 16:30: [id number] periods 00 Bed mobility/tr PT/OT: Bed Active 2020-0 Chris Mobility/Tr ansfer Mobility/T 10-14 Vj ansfer device ransfer 16:30: [id number] present 00 Bed transfer PT/OT: Bed Active 2020-0 Chris Mobility/Tr deficit: Mobility/T 1- Vj biggs sit/stand ransfer 16:30: [id number] 00 Bed transfer PT/OT: Bed Active 2019-0 Chris Mobility/Tr deficit: Mobility/T 10-14 Vj biggs toilet/comm ransfer 16:30: [id number] ode 00 Bed knowledge/s PT/OT: Bed Active 2019-0 Chris Mobility/Tr kill Mobility/T 10-14 Vj ansfer deficit: pt ransfer 16:30: [id number] 00 Bed bed PT/OT: Bed Active 2019-0 Chris Mobility/Tr mobility Mobility/T 10-14 Vj sheehanfer deficit ransfer 16:30: [id number] 00 Balance/End balance/meal cooker PT/OT: Active 2019-0 Chris urance rdination Balance/En 10-14 Vj deficit durance 16:30: [id number] 00 Balance/End endurance PT/OT: Active 2019-0 Chris urance deficit Balance/En 10-14 Vj durance 16:30: [id number] 00 Balance/End knowledge/s PT/OT: Active 2019-0 Chris urance kill Balance/En 10-14 Vj deficit: pt durance 16:30: [id number] 00 Balance/End knowledge/s PT/OT: Active 2019-0 Chris urance kill Balance/En 10-14 Vj deficit: cg durance 16:30: [id number] 00 Gait/Locomo gait PT/OT: Active 2019-0 Chris tion assistive Gait/Locom - Vj problems device otion 16:30: [id number] present 00 Gait/Locomo knowledge/s PT/OT: Active 2019-0 Chris tion kill Gait/Locom - Vj problems deficit: pt otion 16:30: [id number] 00 Gait/Locomo gait PT/OT: Active 2019-0 Chris tion deficit Gait/Locom - Vj problems otion 16:30: [id number] 00 Respiratory oxygen Respirator Active 2020-0 Chris treatments y 2-13 Vj in home [id number] Bed transfer PT/OT: Bed Active 2020-0 Chris Mobility/Tr deficit: Mobility/T 2-20 Vj ansfer shower/tub ransfer 15:15: [id number] 00 Bed transfer PT/OT: Bed Active Chris Mobility/Tr deficit: Mobility/T 2-20 Vj biggs vehicle ransfer 15:15: [id number] 00 Gait/Locomo stair PT/OT: Active Chris tion management Gait/Locom 2-20 Vj problems req otion 15:15: [id number] 00 Allergies, Adverse Reactions, Alerts Allergy Allergy [...] Observation Time Observation Value Comments SYSTOLIC mm[Hg] 2019-12-02 18:10:48 150 mm[Hg] mm[Hg] Method: Sit SYSTOLIC mm[Hg] 2019-10-16 18:10:01 112 mm[Hg] mm[Hg] Method: Stand DIASTOLIC mm[Hg] 2019-12-02 18:10:48 82 mm[Hg] mm[Hg] Method: Sit DIASTOLIC mm[Hg] 2019-10-16 18:10:01 64 mm[Hg] mm[Hg] Method: Stand PULSE 2019-12-02 18:10:48 87 /min /min RESP RATE 2019-10-16 18:10:01 16 /min /min Procedures This patient has no known procedures. Results This patient has no known results.
--- OUTSIDE RECORDS SUMMARY | 2019-12-21 18:12 | XMS REPORT ---
:1935 Author Organization [facility] Care Team Providers Name Role Phone Unavailable Unavailable Unavailable Problems Condition Condition Condition Status Onset Resolution Last Treating Comments Name Details Category Date Date Treatment Clinician Date Bifascicula Bifascicula Diagnosis Active Chris r block r block Vj [id number] Unspecified Unspecified Diagnosis Active Chris atrial atrial 10-13 Vj fibrillatio fibrillatio [id number] n n Heart Heart Diagnosis Active Chris failure, failure, -17 Vj unspecified unspecified [id number] Age-related Age-related Diagnosis Active Chris physical physical 09-24 Vj debility debility [id number] Pain in Pain in Diagnosis Active Chris right right 1 Vj shoulder shoulder [id number] 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 retirement retirement Diagnosis Active Chris (current) (current) Vj use of use of [id number] anticoagula anticoagula nts nts Pain frequent Pain Mgmt Active Johana pain - (Mitchell) 09:50: Hassan 00 [id number] Cardio edema Cardiovasc Active Johana ular - (Mitchell) 09:50: Hassan 00 [id number] Respiratory dyspnea Respirator Active 0 Johana present y - (Mitchell) 09:50: Hassan 00 [id number] Endo/Basim anti-coagul Endo/Basim Active Johana ation - (Mitchell) therapy 09:50: Hassan 00 [id number] Sensory impaired Sensory Active 0 Johana hearing - (Mitchell) 09:50: Hassan 00 [id number] Integument skin Integument Active Johana integrity - (Mitchell) risk 09:50: Hassan 00 [id number] Elimination urinary Eliminatio Active 2020-0 Johana incontinenc n 10-14 (Mitchell) e 09:50: Hassan [id number] Neuro confusion Neuro/Emot Active 2020-0 Johana present ion 10-14 (Mitchell) 09:50: Hassan [id number] Neuro impaired Neuro/Emot Active 2020-0 Johana decision-ma ion 10-14 (Mitchell) otilia 09:50: Hassan [id number] Neuro memory Neuro/Emot Active 2019-0 Johana deficit ion 10-14 (Mitchell) needing 09:50: Hassan supervision 00 [id number] Activity ADL Activity Active 2019-0 Johana assistance 10-14 (Mitchell) required 09:50: Hassan [id number] Activity self-care Activity Active 2019-0 Johana deficit 10-14 (Mitchell) 09:50: Hassan [id number] Safety cannot be Safety Active 2019-0 Johana left alone 10-14 (Mitchell) 09:50: Hassan [id number] Safety fall risk Safety Active 2020-0 Johana factor 10-14 (Mitchell) present 09:50: Hassan [id number] Safety risk for Safety Active 2019-0 Johana hospitaliza 10-14 (Mitchell) tion 09:50: Hassan [id number] Medication oral med Meds Active 2019-0 Johana assistance 10-14 (Mitchell) required 09:50: Hassan [id number] Musculoskel transfer Musculoske Active 2019-0 Johana etal assistance letal 10-14 (Mitchell) required 09:50: Hassan [id number] Musculoskel requires Musculoske Active 2019-0 Johana etal human letal 10-14 (Mitchell) assist to 09:50: Hassan leave home 00 [id number] Activity knowledge/s Activity Active 2020-0 Chris kill 10-14 Vj deficit: pt 16:30: [id number] Safety knowledge/s Safety Active 2020-0 Chris kill 10-14 Vj deficit: pt 16:30: [id number] Safety can be left Safety Active 2020-0 Chris alone for 10-14 Vj only short 16:30: [id number] periods 00 Bed mobility/tr PT/OT: Bed Active 2020-0 Chris Mobility/Tr ansfer Mobility/T 10-14 Vj ansfer device ransfer 16:30: [id number] present 00 Bed transfer PT/OT: Bed Active 2020-0 Chris Mobility/Tr deficit: Mobility/T 1- Vj biggs sit/stand ransfer 16:30: [id number] 00 Bed transfer PT/OT: Bed Active 2019-0 Chris Mobility/Tr deficit: Mobility/T 10-14 Vj biggs toilet/comm ransfer 16:30: [id number] ode 00 Bed knowledge/s PT/OT: Bed Active 2019-0 Chris Mobility/Tr kill Mobility/T 10-14 Vj ansfer deficit: pt ransfer 16:30: [id number] 00 Bed bed PT/OT: Bed Active 2019-0 Chris Mobility/Tr mobility Mobility/T 10-14 Vj sheehanfer deficit ransfer 16:30: [id number] 00 Balance/End balance/group rooms coordinator PT/OT: Active 2019-0 Chris urance rdination Balance/En 10-14 Vj deficit durance 16:30: [id number] 00 Balance/End endurance PT/OT: Active 2019-0 Chris urance deficit Balance/En 10-14 Vj durance 16:30: [id number] Balance/End knowledge/s PT/OT: Active 2019-0 Chris urance kill Balance/En 10-14 Vj deficit: pt durance 16:30: [id number] 00 Balance/End knowledge/s PT/OT: Active 2019-0 Chris urance kill Balance/En 10-14 Vj deficit: cg durance 16:30: [id number] 00 Gait/Locomo gait PT/OT: Active 2019-0 Chris tion assistive Gait/Locom - Vj problems device otion 16:30: [id number] present 00 Gait/Locomo knowledge/s PT/OT: Active 2019-0 Chris tion kill Gait/Locom - Vj problems deficit: pt otion 16:30: [id number] 00 Gait/Locomo gait PT/OT: Active 2019-0 Chris tion deficit Gait/Locom - Vj problems otion 16:30: [id number] 00 Respiratory oxygen Respirator Active 2020-0 Chris treatments y 2-13 Vj in home [id number] Bed transfer PT/OT: Bed Active 2020-0 Chris Mobility/Tr deficit: Mobility/T 2-20 Vj ansfer shower/tub ransfer 15:15: [id number] 00 Bed transfer PT/OT: Bed Active 2019- Chris Mobility/Tr deficit: Mobility/T 2-20 Vj biggs vehicle ransfer 15:15: [id number] 00 Gait/Locomo stair PT/OT: Active Chris tion management Gait/Locom 2-20 Vj problems req otion 15:15: [id number] 00 Allergies, Adverse Reactions, Alerts Allergy Allergy [...] Observation Time Observation Value Comments SYSTOLIC mm[Hg] 2019-11-27 18:10:43 114 mm[Hg] mm[Hg] Method: Sit SYSTOLIC mm[Hg] 2019-10-16 18:10:01 112 mm[Hg] mm[Hg] Method: Stand DIASTOLIC mm[Hg] 2019-11-27 18:10:43 68 mm[Hg] mm[Hg] Method: Sit DIASTOLIC mm[Hg] 2019-10-16 18:10:01 64 mm[Hg] mm[Hg] Method: Stand PULSE 2019-11-27 18:10:43 65 /min /min RESP RATE 2019-10-16 18:10:01 16 /min /min TEMP 2019-10-15 18:10:00 98.3 [degF] Procedures This patient has no known procedures. Results This patient has no known results.
--- OUTSIDE RECORDS SUMMARY | 2019-12-21 18:12 | XMS REPORT ---
:1935 Author Organization [facility] Care Team Providers Name Role Phone Unavailable Unavailable Unavailable Problems Condition Condition Condition Status Onset Resolution Last Treating Comments Name Details Category Date Date Treatment Clinician Date Bifascicula Bifascicula Diagnosis Active Chris r block r block Vj [id number] Unspecified Unspecified Diagnosis Active Chris atrial atrial 10-13 Vj fibrillatio fibrillatio [id number] n n Heart Heart Diagnosis Active Chris failure, failure, -17 Vj unspecified unspecified [id number] Age-related Age-related Diagnosis Active Chris physical physical 09-24 Vj debility debility [id number] Pain in Pain in Diagnosis Active Chris right right 1 Vj shoulder shoulder [id number] Presence of Presence of Diagnosis Active Chris right right Vj artificial artificial [id number] hip joint 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 joint 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 Chris (current) (current) Vj use of use of [id number] anticoagula anticoagula nts nts Pain frequent Pain Mgmt Active Johana pain - (Mitchell) 09:50: Hassan 00 [id number] Cardio edema Cardiovasc Active Johana ular - (Mitchell) 09:50: Hassan 00 [id number] Respiratory dyspnea Respirator Active 0 Johana present y - (Mitchell) 09:50: Hassan 00 [id number] Endo/Basim anti-coagul Endo/Basim Active Johana ation - (Mitchell) therapy 09:50: Hassan 00 [id number] Sensory impaired Sensory Active 0 Johana hearing - (Mitchell) 09:50: Hassan 00 [id number] Integument skin Integument Active Johana integrity - (Mitchell) risk 09:50: Hassan [id number] Elimination urinary Eliminatio Active 2020-0 Johana incontinenc n 10-14 (Mitchell) e 09:50: Hassan [id number] Neuro confusion Neuro/Emot Active 2020-0 Johana present ion 10-14 (Mitchell) 09:50: Hassan [id number] Neuro impaired Neuro/Emot Active 2020-0 Johana decision-ma ion 10-14 (Mitchell) otilia 09:50: Hassan [id number] Neuro memory Neuro/Emot Active 2019-0 Johana deficit ion 10-14 (Mitchell) needing 09:50: Hassan supervision 00 [id number] Activity ADL Activity Active 2019-0 Johana assistance 10-14 (Mitchell) required 09:50: Hassan [id number] Activity self-care Activity Active 2019-0 Johana deficit 10-14 (Mitchell) 09:50: Hassan [id number] Safety cannot be Safety Active 2019-0 Johana left alone 10-14 (Mitchell) 09:50: Hassan [id number] Safety fall risk Safety Active 2020-0 Johana factor 10-14 (Mitchell) present 09:50: Hassan [id number] Safety risk for Safety Active 2019-0 Johana hospitaliza 10-14 (Mitchell) tion 09:50: Hassan [id number] Medication oral med Meds Active 2019-0 Johana assistance 10-14 (Mitchell) required 09:50: Hassan [id number] Musculoskel transfer Musculoske Active 2019-0 Johana etal assistance letal 10-14 (Mitchell) required 09:50: Hassan [id number] Musculoskel requires Musculoske Active 2019-0 Johana etal human letal 10-14 (Mitchell) assist to 09:50: Hassan leave home 00 [id number] Activity knowledge/s Activity Active 2020-0 Chris kill 10-14 Vj deficit: pt 16:30: [id number] Safety knowledge/s Safety Active 2020-0 Chris kill 10-14 Vj deficit: pt 16:30: [id number] 00 Safety can be left Safety Active 2020-0 Chris alone for 10-14 Vj only short 16:30: [id number] periods 00 Bed mobility/tr PT/OT: Bed Active 2020-0 Chris Mobility/Tr ansfer Mobility/T 10-14 Vj ansfer device ransfer 16:30: [id number] present 00 Bed transfer PT/OT: Bed Active 2020-0 Chris Mobility/Tr deficit: Mobility/T 1- Vj biggs sit/stand ransfer 16:30: [id number] 00 Bed transfer PT/OT: Bed Active 2019-0 Chris Mobility/Tr deficit: Mobility/T 10-14 Vj biggs toilet/comm ransfer 16:30: [id number] ode 00 Bed knowledge/s PT/OT: Bed Active 2019-0 Chris Mobility/Tr kill Mobility/T 10-14 Vj ansfer deficit: pt ransfer 16:30: [id number] 00 Bed bed PT/OT: Bed Active 2019-0 Chris Mobility/Tr mobility Mobility/T 10-14 Vj sheehanfer deficit ransfer 16:30: [id number] 00 Balance/End balance/multimedia services coordinator PT/OT: Active 2019-0 Chris urance rdination Balance/En 10-14 Vj deficit durance 16:30: [id number] 00 Balance/End endurance PT/OT: Active 2019-0 Chris urance deficit Balance/En 10-14 Vj durance 16:30: [id number] 00 Balance/End knowledge/s PT/OT: Active 2019-0 Chris urance kill Balance/En 10-14 Vj deficit: pt durance 16:30: [id number] 00 Balance/End knowledge/s PT/OT: Active 2019-0 Chris urance kill Balance/En 10-14 Vj deficit: cg durance 16:30: [id number] 00 Gait/Locomo gait PT/OT: Active 2019-0 Chris tion assistive Gait/Locom - Vj problems device otion 16:30: [id number] present 00 Gait/Locomo knowledge/s PT/OT: Active 2019-0 Chris tion kill Gait/Locom - Vj problems deficit: pt otion 16:30: [id number] 00 Gait/Locomo gait PT/OT: Active 2019-0 Chris tion deficit Gait/Locom - Vj problems otion 16:30: [id number] 00 Respiratory oxygen Respirator Active 2020-0 Chris treatments y 2-13 Vj in home [id number] Bed transfer PT/OT: Bed Active 2020-0 Chris Mobility/Tr deficit: Mobility/T 2-20 Vj ansfer shower/tub ransfer 15:15: [id number] 00 Bed transfer PT/OT: Bed Active Chris Mobility/Tr deficit: Mobility/T 2-20 Vj biggs vehicle ransfer 15:15: [id number] 00 Gait/Locomo stair PT/OT: Active Chris tion management Gait/Locom 2-20 Vj problems req otion 15:15: [id number] 00 Allergies, Adverse Reactions, Alerts Allergy Allergy [...]
--- OUTSIDE RECORDS SUMMARY | 2019-12-21 18:12 | XMS REPORT ---
:1935 Author Organization [facility] Care Team Providers Name Role Phone Unavailable Unavailable Unavailable Problems Condition Condition Condition Status Onset Resolution Last Treating Comments Name Details Category Date Date Treatment Clinician Date Bifascicula Bifascicula Diagnosis Active Chris r block r block Vj [id number] Unspecified Unspecified Diagnosis Active Chris atrial atrial 10-13 Vj fibrillatio fibrillatio [id number] n n Heart Heart Diagnosis Active Chris failure, failure, -17 Vj unspecified unspecified [id number] Age-related Age-related Diagnosis Active Chris physical physical 09-24 Vj debility debility [id number] Pain in Pain in Diagnosis Active Chris right right 1 Vj shoulder shoulder [id number] Presence of Presence of Diagnosis Active Chris right right Vj artificial artificial [id number] hip joint hip joint long-term long-term Diagnosis Active Chris (current) (current) Vj use of use of [id number] anticoagula anticoagula nts nts Pain frequent Pain Mgmt Active Johana pain - (Mitchell) 09:50: Hassan 00 [id number] Cardio edema Cardiovasc Active Johana ular - (Mitchell) 09:50: Hassan 00 [id number] Respiratory dyspnea Respirator Active 0 Johana present y - (Mitchell) 09:50: Hassan 00 [id number] Endo/Basim anti-coagul Endo/Basim Active Johana ation - (Mitchell) therapy 09:50: Hassan 00 [id number] Sensory impaired Sensory Active 0 Johana hearing - (Mitchell) 09:50: Hassan 00 [id number] Integument skin Integument Active Johana integrity - (Mitchell) risk 09:50: Hassan 00 [id number] Elimination urinary Eliminatio Active 2020-0 Johana incontinenc n 10-14 (Mitchell) e 09:50: Hassan [id number] Neuro confusion Neuro/Emot Active 2020-0 Johana present ion 10-14 (Mitchell) 09:50: Hassan [id number] Neuro impaired Neuro/Emot Active 2020-0 Johana decision-ma ion 10-14 (Mitchell) otilia 09:50: Hassan [id number] Neuro memory Neuro/Emot Active 2019-0 Johana deficit ion 10-14 (Mitchell) needing 09:50: Hassan supervision 00 [id number] Activity ADL Activity Active 2019-0 Johana assistance 10-14 (Mitchell) required 09:50: Hassan [id number] Activity self-care Activity Active 2019-0 Johana deficit 10-14 (Mitchell) 09:50: Hassan [id number] Safety cannot be Safety Active 2019-0 Johana left alone 10-14 (Mitchell) 09:50: Hassan [id number] Safety fall risk Safety Active 2020-0 Johana factor 10-14 (Mitchell) present 09:50: Hassan [id number] Safety risk for Safety Active 2019-0 Johana hospitaliza 10-14 (Mitchell) tion 09:50: Hassan [id number] Medication oral med Meds Active 2019-0 Johana assistance 10-14 (Mitchell) required 09:50: Hassan [id number] Musculoskel transfer Musculoske Active 2019-0 Johana etal assistance letal 10-14 (Mitchell) required 09:50: Hassan [id number] Musculoskel requires Musculoske Active 2019-0 Johana etal human letal 10-14 (Mitchell) assist to 09:50: Hassan leave home 00 [id number] Activity knowledge/s Activity Active 2020-0 Chris kill 10-14 Vj deficit: pt 16:30: [id number] Safety knowledge/s Safety Active 2020-0 Chris kill 10-14 Vj deficit: pt 16:30: [id number] Safety can be left Safety Active 2020-0 Chris alone for 10-14 Vj only short 16:30: [id number] periods 00 Bed mobility/tr PT/OT: Bed Active 2020-0 Chris Mobility/Tr ansfer Mobility/T 10-14 Vj ansfer device ransfer 16:30: [id number] present 00 Bed transfer PT/OT: Bed Active 2020-0 Chris Mobility/Tr deficit: Mobility/T 1- Vj biggs sit/stand ransfer 16:30: [id number] 00 Bed transfer PT/OT: Bed Active 2019-0 Chris Mobility/Tr deficit: Mobility/T 10-14 Vj biggs toilet/comm ransfer 16:30: [id number] ode 00 Bed knowledge/s PT/OT: Bed Active 2019-0 Chris Mobility/Tr kill Mobility/T 10-14 Vj ansfer deficit: pt ransfer 16:30: [id number] 00 Bed bed PT/OT: Bed Active 2019-0 Chris Mobility/Tr mobility Mobility/T 10-14 Vj sheehanfer deficit ransfer 16:30: [id number] 00 Balance/End balance/assisted living coordinator PT/OT: Active 2019-0 Chris urance rdination Balance/En 10-14 Vj deficit durance 16:30: [id number] 00 Balance/End endurance PT/OT: Active 2019-0 Chris urance deficit Balance/En 10-14 Vj durance 16:30: [id number] 00 Balance/End knowledge/s PT/OT: Active 2019-0 Chris urance kill Balance/En 10-14 Vj deficit: pt durance 16:30: [id number] 00 Balance/End knowledge/s PT/OT: Active 2019-0 Chris urance kill Balance/En 10-14 Vj deficit: cg durance 16:30: [id number] 00 Gait/Locomo gait PT/OT: Active 2019-0 Chris tion assistive Gait/Locom - Vj problems device otion 16:30: [id number] present 00 Gait/Locomo knowledge/s PT/OT: Active 2019-0 Chris tion kill Gait/Locom - Vj problems deficit: pt otion 16:30: [id number] 00 Gait/Locomo gait PT/OT: Active 2019-0 Chris tion deficit Gait/Locom - Vj problems otion 16:30: [id number] 00 Respiratory oxygen Respirator Active 2020-0 Chris treatments y 2-13 Vj in home [id number] Bed transfer PT/OT: Bed Active 2020-0 Chris Mobility/Tr deficit: Mobility/T 2-20 Vj ansfer shower/tub ransfer 15:15: [id number] 00 Bed transfer PT/OT: Bed Active 2019- Chris Mobility/Tr deficit: Mobility/T 2-20 Vj biggs vehicle ransfer 15:15: [id number] 00 Gait/Locomo stair PT/OT: Active Chris tion management Gait/Locom 2-20 Vj problems req otion 15:15: [id number] 00 Allergies, Adverse Reactions, Alerts Allergy Allergy [...] Observation Time Observation Value Comments SYSTOLIC mm[Hg] 2019-11-20 18:10:36 130 mm[Hg] mm[Hg] Method: Sit SYSTOLIC mm[Hg] 2019-10-16 18:10:01 112 mm[Hg] mm[Hg] Method: Stand DIASTOLIC mm[Hg] 2019-11-20 18:10:36 80 mm[Hg] mm[Hg] Method: Sit DIASTOLIC mm[Hg] 2019-10-16 18:10:01 64 mm[Hg] mm[Hg] Method: Stand PULSE 2019-11-20 18:10:36 76 /min /min RESP RATE 2019-10-16 18:10:01 16 /min /min TEMP 2019-10-15 18:10:00 98.3 [degF] Procedures This patient has no known procedures. Results This patient has no known results.
--- OUTSIDE RECORDS SUMMARY | 2019-12-21 18:12 | XMS REPORT ---
:1935 Author Organization [facility] Care Team Providers Name Role Phone Unavailable Unavailable Unavailable Problems Condition Condition Condition Status Onset Resolution Last Treating Comments Name Details Category Date Date Treatment Clinician Date Bifascicula Bifascicula Diagnosis Active Chris r block r block Vj [id number] Unspecified Unspecified Diagnosis Active Chris atrial atrial 10-13 Vj fibrillatio fibrillatio [id number] n n Heart Heart Diagnosis Active Chris failure, failure, -17 Vj unspecified unspecified [id number] Age-related Age-related Diagnosis Active Chris physical physical 09-24 Vj debility debility [id number] Pain in Pain in Diagnosis Active Chris right right 1 Vj shoulder shoulder [id number] Presence of Presence of Diagnosis Active Chris right right Vj artificial artificial [id number] hip joint hip joint custodial custodial Diagnosis Active Chris (current) (current) Vj use of use of [id number] anticoagula anticoagula nts nts Pain frequent Pain Mgmt Active Johana pain - (Mitchell) 09:50: Hassan 00 [id number] Cardio edema Cardiovasc Active Johana ular - (Mitchell) 09:50: Hassan 00 [id number] Respiratory dyspnea Respirator Active 0 Johana present y - (Mitchell) 09:50: Hassan 00 [id number] Endo/Basim anti-coagul Endo/Basim Active Johana ation - (Mitchell) therapy 09:50: Hassan 00 [id number] Sensory impaired Sensory Active 0 Johana hearing - (Mitchell) 09:50: Hassan 00 [id number] Integument skin Integument Active Johana integrity - (Mitchell) risk 09:50: Hassan [id number] Elimination urinary Eliminatio Active 2020-0 Johana incontinenc n 10-14 (Mitchell) e 09:50: Hassan [id number] Neuro confusion Neuro/Emot Active 2020-0 Johana present ion 10-14 (Mitchell) 09:50: Hassan [id number] Neuro impaired Neuro/Emot Active 2020-0 Johana decision-ma ion 10-14 (Mitchell) otilia 09:50: Hassan [id number] Neuro memory Neuro/Emot Active 2019-0 Johana deficit ion 10-14 (Mitchell) needing 09:50: Hassan supervision 00 [id number] Activity ADL Activity Active 2019-0 Johana assistance 10-14 (Mitchell) required 09:50: Hassan [id number] Activity self-care Activity Active 2019-0 Johana deficit 10-14 (Mitchell) 09:50: Hassan [id number] Safety cannot be Safety Active 2019-0 Johana left alone 10-14 (Mitchell) 09:50: Hassan [id number] Safety fall risk Safety Active 2020-0 Johana factor 10-14 (Mitchell) present 09:50: Hassan [id number] Safety risk for Safety Active 2019-0 Johana hospitaliza 10-14 (Mitchell) tion 09:50: Hassan [id number] Medication oral med Meds Active 2019-0 Johana assistance 10-14 (Mitchell) required 09:50: Hassan [id number] Musculoskel transfer Musculoske Active 2019-0 Johana etal assistance letal 10-14 (Mitchell) required 09:50: Hassan [id number] Musculoskel requires Musculoske Active 2019-0 Johana etal human letal 10-14 (Mitchell) assist to 09:50: Hassan leave home 00 [id number] Activity knowledge/s Activity Active 2020-0 Chris kill 10-14 Vj deficit: pt 16:30: [id number] Safety knowledge/s Safety Active 2020-0 Chris kill 10-14 Vj deficit: pt 16:30: [id number] 00 Safety can be left Safety Active 2020-0 Chris alone for 10-14 Vj only short 16:30: [id number] periods 00 Bed mobility/tr PT/OT: Bed Active 2020-0 Chris Mobility/Tr ansfer Mobility/T 10-14 Vj ansfer device ransfer 16:30: [id number] present 00 Bed transfer PT/OT: Bed Active 2020-0 Chris Mobility/Tr deficit: Mobility/T 1- Vj biggs sit/stand ransfer 16:30: [id number] 00 Bed transfer PT/OT: Bed Active 2019-0 Chris Mobility/Tr deficit: Mobility/T 10-14 Vj biggs toilet/comm ransfer 16:30: [id number] ode 00 Bed knowledge/s PT/OT: Bed Active 2019-0 Chris Mobility/Tr kill Mobility/T 10-14 Vj ansfer deficit: pt ransfer 16:30: [id number] 00 Bed bed PT/OT: Bed Active 2019-0 Chris Mobility/Tr mobility Mobility/T 10-14 Vj sheehanfer deficit ransfer 16:30: [id number] 00 Balance/End balance/content coordinator PT/OT: Active 2019-0 Chris urance rdination Balance/En 10-14 Vj deficit durance 16:30: [id number] 00 Balance/End endurance PT/OT: Active 2019-0 Chris urance deficit Balance/En 10-14 Vj durance 16:30: [id number] 00 Balance/End knowledge/s PT/OT: Active 2019-0 Chris urance kill Balance/En 10-14 Vj deficit: pt durance 16:30: [id number] 00 Balance/End knowledge/s PT/OT: Active 2019-0 Chris urance kill Balance/En 10-14 Vj deficit: cg durance 16:30: [id number] 00 Gait/Locomo gait PT/OT: Active 2019-0 Chris tion assistive Gait/Locom - Vj problems device otion 16:30: [id number] present 00 Gait/Locomo knowledge/s PT/OT: Active 2019-0 Chris tion kill Gait/Locom - Vj problems deficit: pt otion 16:30: [id number] 00 Gait/Locomo gait PT/OT: Active 2019-0 Chris tion deficit Gait/Locom - Vj problems otion 16:30: [id number] 00 Respiratory oxygen Respirator Active 2020-0 Chris treatments y 2-13 Vj in home [id number] Bed transfer PT/OT: Bed Active 2020-0 Chris Mobility/Tr deficit: Mobility/T 2-20 Vj ansfer shower/tub ransfer 15:15: [id number] 00 Bed transfer PT/OT: Bed Active 2019- Chris Mobility/Tr deficit: Mobility/T 2-20 Vj biggs vehicle ransfer 15:15: [id number] 00 Gait/Locomo stair PT/OT: Active Chris tion management Gait/Locom 2-20 Vj problems req otion 15:15: [id number] 00 Allergies, Adverse Reactions, Alerts Allergy Allergy [...]
--- OUTSIDE RECORDS SUMMARY | 2019-12-21 18:12 | XMS REPORT ---
:1935 Author Organization [facility] Care Team Providers Name Role Phone Unavailable Unavailable Unavailable Problems Condition Condition Condition Status Onset Resolution Last Treating Comments Name Details Category Date Date Treatment Clinician Date Bifascicula Bifascicula Diagnosis Active Chris r block r block Vj [id number] Unspecified Unspecified Diagnosis Active Chris atrial atrial 10-13 Vj fibrillatio fibrillatio [id number] n n Heart Heart Diagnosis Active Chris failure, failure, -17 Vj unspecified unspecified [id number] Age-related Age-related Diagnosis Active Chris physical physical 09-24 Vj debility debility [id number] Pain in Pain in Diagnosis Active Chris right right 1 Vj shoulder shoulder [id number] Presence of 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 senior living long term Diagnosis Active Chris (current) (current) Vj use of use of [id number] anticoagula anticoagula nts nts Pain frequent Pain Mgmt Active Johana pain - (Mitchell) 09:50: Hassan 00 [id number] Cardio edema Cardiovasc Active Johana ular - (Mitchell) 09:50: Hassan 00 [id number] Respiratory dyspnea Respirator Active 0 Johana present y - (Mitchell) 09:50: Hassan 00 [id number] Endo/Basim anti-coagul Endo/Basim Active Johana ation - (Mitchell) therapy 09:50: Hassan 00 [id number] Sensory impaired Sensory Active 0 Johana hearing - (Mitchell) 09:50: Hassan 00 [id number] Integument skin Integument Active Johana integrity - (Mitchell) risk 09:50: Hassan [id number] Elimination urinary Eliminatio Active 2020-0 Johana incontinenc n 10-14 (Mitchell) e 09:50: Hassan [id number] Neuro confusion Neuro/Emot Active 2020-0 Johana present ion 10-14 (Mitchell) 09:50: Hassan [id number] Neuro impaired Neuro/Emot Active 2020-0 Johana decision-ma ion 10-14 (Mitchell) otilia 09:50: Hassan [id number] Neuro memory Neuro/Emot Active 2019-0 Johana deficit ion 10-14 (Mitchell) needing 09:50: Hassan supervision 00 [id number] Activity ADL Activity Active 2019-0 Johana assistance 10-14 (Mitchell) required 09:50: Hassan [id number] Activity self-care Activity Active 2019-0 Johana deficit 10-14 (Mitchell) 09:50: Hassan [id number] Safety cannot be Safety Active 2019-0 Johana left alone 10-14 (Mitchell) 09:50: Hassan [id number] Safety fall risk Safety Active 2020-0 Johana factor 10-14 (Mitchell) present 09:50: Hassan [id number] Safety risk for Safety Active 2019-0 Johana hospitaliza 10-14 (Mitchell) tion 09:50: Hassan [id number] Medication oral med Meds Active 2019-0 Johana assistance 10-14 (Mitchell) required 09:50: Hassan [id number] Musculoskel transfer Musculoske Active 2019-0 Johana etal assistance letal 10-14 (Mitchell) required 09:50: Hassan [id number] Musculoskel requires Musculoske Active 2019-0 Johana etal human letal 10-14 (Mitchell) assist to 09:50: Hassan leave home 00 [id number] Activity knowledge/s Activity Active 2020-0 Chris kill 10-14 Vj deficit: pt 16:30: [id number] Safety knowledge/s Safety Active 2020-0 Chris kill 10-14 Vj deficit: pt 16:30: [id number] Safety can be left Safety Active 2020-0 Chris alone for 10-14 Vj only short 16:30: [id number] periods 00 Bed mobility/tr PT/OT: Bed Active 2020-0 Chris Mobility/Tr ansfer Mobility/T 10-14 Vj ansfer device ransfer 16:30: [id number] present 00 Bed transfer PT/OT: Bed Active 2020-0 Chris Mobility/Tr deficit: Mobility/T 1- Vj biggs sit/stand ransfer 16:30: [id number] 00 Bed transfer PT/OT: Bed Active 2019-0 Chris Mobility/Tr deficit: Mobility/T 10-14 Vj biggs toilet/comm ransfer 16:30: [id number] ode 00 Bed knowledge/s PT/OT: Bed Active 2019-0 Chris Mobility/Tr kill Mobility/T 10-14 Vj ansfer deficit: pt ransfer 16:30: [id number] 00 Bed bed PT/OT: Bed Active 2019-0 Chris Mobility/Tr mobility Mobility/T 10-14 Vj sheehanfer deficit ransfer 16:30: [id number] 00 Balance/End balance/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 application coordinator PT/OT: Active 2019-0 Chris urance rdination Balance/En 10-14 Vj deficit durance 16:30: [id number] 00 Balance/End endurance PT/OT: Active 2019-0 Chris urance deficit Balance/En 10-14 Vj durance 16:30: [id number] 00 Balance/End knowledge/s PT/OT: Active 2019-0 Chris urance kill Balance/En 10-14 Vj deficit: pt durance 16:30: [id number] 00 Balance/End knowledge/s PT/OT: Active 2019-0 Chris urance kill Balance/En 10-14 Vj deficit: cg durance 16:30: [id number] 00 Gait/Locomo gait PT/OT: Active 2019-0 Chris tion assistive Gait/Locom - Vj problems device otion 16:30: [id number] present 00 Gait/Locomo knowledge/s PT/OT: Active 2019-0 Chris tion kill Gait/Locom - Vj problems deficit: pt otion 16:30: [id number] 00 Gait/Locomo gait PT/OT: Active 2019-0 Chris tion deficit Gait/Locom - Vj problems otion 16:30: [id number] 00 Respiratory oxygen Respirator Active 2020-0 Chris treatments y 2-13 Vj in home [id number] Bed transfer PT/OT: Bed Active 2020-0 Chris Mobility/Tr deficit: Mobility/T 2-20 Vj ansfer shower/tub ransfer 15:15: [id number] 00 Bed transfer PT/OT: Bed Active Chris Mobility/Tr deficit: Mobility/T 2-20 Vj biggs vehicle ransfer 15:15: [id number] 00 Gait/Locomo stair PT/OT: Active Chris tion management Gait/Locom 2-20 Vj problems req otion 15:15: [id number] 00 Allergies, Adverse Reactions, Alerts Allergy Allergy [...]
--- OUTSIDE RECORDS SUMMARY | 2019-12-21 18:12 | XMS REPORT ---
:1935 Author Organization [facility] Care Team Providers Name Role Phone Unavailable Unavailable Unavailable Problems Condition Condition Condition Status Onset Resolution Last Treating Comments Name Details Category Date Date Treatment Clinician Date Bifascicula Bifascicula Diagnosis Active Chris r block r block Vj [id number] Unspecified Unspecified Diagnosis Active Chris atrial atrial - Vj fibrillatio fibrillatio [id number] n n Heart Heart Diagnosis Active Chris failure, failure, - Vj unspecified unspecified [id number] Age-related Age-related Diagnosis Active Chris physical physical 1- Vj debility debility [id number] Pain in Pain in Diagnosis Active Chris right right 1- Vj shoulder shoulder [id number] Presence of Presence of Diagnosis Active Chris right right Vj artificial artificial [id number] hip joint 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 (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) (current) Vj use of use of [id number] anticoagula anticoagula nts nts Pain frequent Pain Mgmt Resolve 2019-12-04 Johana pain d - 15:40:00 (Mitchell) 09:50: Hassan 00 [id number] Cardio edema Cardiovasc Resolve 2019-12-04 Johana ular d 10-14 15:40:00 (Mitchell) 09:50: Hassan 00 [id number] Respiratory dyspnea Respirator Resolve 2019-12-04 Johana present y d 10-14 15:40:00 (Mitchell) 09:50: Hassan 00 [id number] Endo/Basim anti-coagul Endo/Basim Resolve 2019-12-04 Johana ation d 10-14 15:40:00 (Mitchell) therapy 09:50: Hassan 00 [id number] Sensory impaired Sensory Resolve 2019-12-04 Johana hearing d 10-14 15:40:00 (Mitchell) 09:50: Hassan 00 [id number] Integument skin Integument Resolve 2019-12-04 Johana integrity d 10-14 15:40:00 (Mithcell) risk 09:50: Hassan 00 [id number] Elimination urinary Eliminatio Resolve 2019-12-04 Johana incontinenc n d 10-14 15:40:00 (Mitchell) e 09:50: Hassan 00 [id number] Neuro confusion Neuro/Emot Resolve 2019-12-04 Johana present ion d 10-14 15:40:00 (Mitchell) 09:50: Hassan 00 [id number] Neuro impaired Neuro/Emot Resolve 2019-12-04 Johana decision-ma ion d 10-14 15:40:00 (Mitchell) otilia 09:50: Hassan 00 [id number] Neuro memory Neuro/Emot Resolve 2019-12-04 Johana deficit ion d 10-14 15:40:00 (Mitchell) needing 09:50: Hassan supervision 00 [id number] Activity ADL Activity Resolve 2019-12-04 Johana assistance d 10-14 15:40:00 (Mithcell) required 09:50: Hassan [id number] Activity self-care Activity Resolve 2019-12-04 Johana deficit d 10-14 15:40:00 (Mitchell) 09:50: Hassan 00 [id number] Safety cannot be Safety Resolve 2019-12-04 Johana left alone d 10-14 15:40:00 (Mitchell) 09:50: Hassan 00 [id number] Safety fall risk Safety Resolve 2019-12-04 Johana factor d 10-14 15:40:00 (Mitchell) present 09:50: Hassan [id number] Safety risk for Safety Resolve 2019-12-04 Johana hospitaliza d 10-14 15:40:00 (Mitchell) tion 09:50: Hassan 00 [id number] Medication oral med Meds Resolve 2019-12-04 Johana assistance d 10-14 15:40:00 (Mitchell) required 09:50: Hassan 00 [id number] Musculoskel transfer Musculoske Resolve 2019-12-04 Johana etal assistance letal d 10-14 15:40:00 (Mitchell) required 09:50: Hassan 00 [id number] Musculoskel requires Musculoske Resolve 2019-12-04 Johana etal human letal d 10-14 15:40:00 (Mitchell) assist to 09:50: Hassan leave home 00 [id number] Activity knowledge/s Activity Resolve 2019-12-04 Chris kill d 10-14 15:40:00 Vj deficit: pt 16:30: [id number] 00 Safety knowledge/s Safety Resolve 2019-12-04 Chris kill d 10-14 15:40:00 Vj deficit: pt 16:30: [id number] 00 Safety can be left Safety Resolve 2019-12-04 Chris alone for d 10-14 15:40:00 Vj only short 16:30: [id number] periods 00 Bed mobility/tr PT/OT: Bed Resolve 2019-12-04 Chris Mobility/Tr ansfer Mobility/T d 10-14 15:40:00 Vj sheehanfer device ransfer 16:30: [id number] present 00 Bed transfer PT/OT: Bed Resolve 2019-12-04 Chris Mobility/Tr deficit: Mobility/T d 10-14 15:40:00 Vj biggs sit/stand ransfer 16:30: [id number] 00 Bed transfer PT/OT: Bed Resolve 2019-12-04 Chris Mobility/Tr deficit: Mobility/T d 10-14 15:40:00 Vj sheehanfer toilet/comm ransfer 16:30: [id number] ode 00 Bed knowledge/s PT/OT: Bed Resolve 2019-12-04 Chris Mobility/Tr kill Mobility/T d 10-14 15:40:00 Vj ansfer deficit: pt ransfer 16:30: [id number] 00 Bed bed PT/OT: Bed Resolve 2019-12-04 Chris Mobility/Tr mobility Mobility/T d 10-14 15:40:00 Vj ansfer deficit ransfer 16:30: [id number] 00 Balance/End balance/infection prevention coordinator PT/OT: Resolve 2019-12-04 Chris urance rdination Balance/En d 10-14 15:40:00 Vj deficit durance 16:30: [id number] 00 Balance/End endurance PT/OT: Resolve 2019-12-04 Chris urance deficit Balance/En d 10-14 15:40:00 Vj durance 16:30: [id number] 00 Balance/End knowledge/s PT/OT: Resolve 2019-12-04 Chris urance kill Balance/En d 10-14 15:40:00 Vj deficit: pt durance 16:30: [id number] 00 Balance/End knowledge/s PT/OT: Resolve 2019-12-04 Chris urance kill Balance/En d 10-14 15:40:00 Vj deficit: cg durance 16:30: [id number] 00 Gait/Locomo gait PT/OT: Resolve 2019-12-04 Chris tion assistive Gait/Locom d 10-14 15:40:00 Vj problems device otion 16:30: [id number] present 00 Gait/Locomo knowledge/s PT/OT: Resolve 2019-12-04 Chris tion kill Gait/Locom d 10-14 15:40:00 Vj problems deficit: pt otion 16:30: [id number] 00 Gait/Locomo gait PT/OT: Resolve 2019-12-04 Chris tion deficit Gait/Locom d 10-14 15:40:00 Vj problems otion 16:30: [id number] 00 Respiratory oxygen Respirator Resolve 2019-12-04 Chris treatments y d 2-13 15:40:00 Vj in home [id number] Bed transfer PT/OT: Bed Resolve 2019-12-04 Chris Mobility/Tr deficit: Mobility/T d 2-20 15:40:00 Vj ansfer shower/tub ransfer 15:15: [id number] 00 Bed transfer PT/OT: Bed Resolve 2019-12-04 Chris Mobility/Tr deficit: Mobility/T d 2-20 15:40:00 Vj ansfer vehicle ransfer 15:15: [id number] 00 Gait/Locomo stair PT/OT: Resolve 2019-12-04 Chris tion management Gait/Locom d 2-20 15:40:00 Vj problems req otion 15:15: [id number] 00 Allergies, Adverse Reactions, Alerts Allergy Allergy [...]
--- OUTSIDE RECORDS SUMMARY | 2019-12-21 18:12 | XMS REPORT ---
:1935 Author Organization [facility] Care Team Providers Name Role Phone Unavailable Unavailable Unavailable Problems Condition Condition Condition Status Onset Resolution Last Treating Comments Name Details Category Date Date Treatment Clinician Date Bifascicula Bifascicula Diagnosis Active Chris r block r block Vj [id number] Unspecified Unspecified Diagnosis Active Chris atrial atrial 10-13 Vj fibrillatio fibrillatio [id number] n n Heart Heart Diagnosis Active Chris failure, failure, -17 Vj unspecified unspecified [id number] Age-related Age-related Diagnosis Active Chris physical physical 09-24 Vj debility debility [id number] Pain in Pain in Diagnosis Active Chris right right 1 Vj shoulder shoulder [id number] Presence of Presence of Diagnosis Active Chris right right Vj artificial artificial [id number] hip joint hip joint longterm longterm Diagnosis Active Chris (current) (current) Vj use of use of [id number] anticoagula anticoagula nts nts Pain frequent Pain Mgmt Active Johana pain - (Mitchell) 09:50: Hassan 00 [id number] Cardio edema Cardiovasc Active Johana ular - (Mitchell) 09:50: Hassan 00 [id number] Respiratory dyspnea Respirator Active 0 Johana present y - (Mitchell) 09:50: Hassan 00 [id number] Endo/Basim anti-coagul Endo/Basim Active Johana ation - (Mitchell) therapy 09:50: Hassan 00 [id number] Sensory impaired Sensory Active 0 Johana hearing - (Mitchell) 09:50: Hassan 00 [id number] Integument skin Integument Active Johana integrity - (Mitchell) risk 09:50: Hassan [id number] Elimination urinary Eliminatio Active 2020-0 Johana incontinenc n 10-14 (Mitchell) e 09:50: Hassan [id number] Neuro confusion Neuro/Emot Active 2020-0 Johana present ion 10-14 (Mitchell) 09:50: Hassan [id number] Neuro impaired Neuro/Emot Active 2020-0 Johana decision-ma ion 10-14 (Mitchell) otilia 09:50: Hassan [id number] Neuro memory Neuro/Emot Active 2019-0 Johana deficit ion 10-14 (Mitchell) needing 09:50: Hassan supervision 00 [id number] Activity ADL Activity Active 2019-0 Johana assistance 10-14 (Mitchell) required 09:50: Hassan [id number] Activity self-care Activity Active 2019-0 Johana deficit 10-14 (Mitchell) 09:50: Hassan [id number] Safety cannot be Safety Active 2019-0 Johana left alone 10-14 (Mitchell) 09:50: Hassan [id number] Safety fall risk Safety Active 2020-0 Johana factor 10-14 (Mitchell) present 09:50: Hassan [id number] Safety risk for Safety Active 2019-0 Johana hospitaliza 10-14 (Mitchell) tion 09:50: Hassan [id number] Medication oral med Meds Active 2019-0 Johana assistance 10-14 (Mitchell) required 09:50: Hassan [id number] Musculoskel transfer Musculoske Active 2019-0 Johana etal assistance letal 10-14 (Mitchell) required 09:50: Hassan [id number] Musculoskel requires Musculoske Active 2019-0 Johana etal human letal 10-14 (Mitchell) assist to 09:50: Hassan leave home 00 [id number] Activity knowledge/s Activity Active 2020-0 Chris kill 10-14 Vj deficit: pt 16:30: [id number] 00 Safety knowledge/s Safety Active 2020-0 Chris kill 10-14 Vj deficit: pt 16:30: [id number] 00 Safety can be left Safety Active 2020-0 Chris alone for 10-14 Vj only short 16:30: [id number] periods 00 Bed mobility/tr PT/OT: Bed Active 2020-0 Chris Mobility/Tr ansfer Mobility/T 10-14 Vj ansfer device ransfer 16:30: [id number] present 00 Bed transfer PT/OT: Bed Active 2020-0 Chris Mobility/Tr deficit: Mobility/T 1- Vj biggs sit/stand ransfer 16:30: [id number] 00 Bed transfer PT/OT: Bed Active 2019-0 Chris Mobility/Tr deficit: Mobility/T 10-14 Vj biggs toilet/comm ransfer 16:30: [id number] ode 00 Bed knowledge/s PT/OT: Bed Active 2019-0 Chrsi Mobility/Tr kill Mobility/T 10-14 Vj ansfer deficit: pt ransfer 16:30: [id number] 00 Bed bed PT/OT: Bed Active 2019-0 Chris Mobility/Tr mobility Mobility/T 10-14 Vj sheehanfer deficit ransfer 16:30: [id number] 00 Balance/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/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 PT/OT: Active 2019-0 Chris urance rdination Balance/En 10-14 Vj deficit durance 16:30: [id number] 00 Balance/End endurance PT/OT: Active 2019-0 Chris urance deficit Balance/En 10-14 Vj durance 16:30: [id number] 00 Balance/End knowledge/s PT/OT: Active 2019-0 Chris urance kill Balance/En 10-14 Vj deficit: pt durance 16:30: [id number] 00 Balance/End knowledge/s PT/OT: Active 2019-0 Chris urance kill Balance/En 10-14 Vj deficit: cg durance 16:30: [id number] 00 Gait/Locomo gait PT/OT: Active 2019-0 Chris tion assistive Gait/Locom - Vj problems device otion 16:30: [id number] present 00 Gait/Locomo knowledge/s PT/OT: Active 2019-0 Chris tion kill Gait/Locom - Vj problems deficit: pt otion 16:30: [id number] 00 Gait/Locomo gait PT/OT: Active 2019-0 Chris tion deficit Gait/Locom - Vj problems otion 16:30: [id number] 00 Respiratory oxygen Respirator Active 2020-0 Chris treatments y 2-13 Vj in home [id number] Bed transfer PT/OT: Bed Active 2020-0 Chris Mobility/Tr deficit: Mobility/T 2-20 Vj ansfer shower/tub ransfer 15:15: [id number] 00 Bed transfer PT/OT: Bed Active 2019- Chris Mobility/Tr deficit: Mobility/T 2-20 Vj biggs vehicle ransfer 15:15: [id number] 00 Gait/Locomo stair PT/OT: Active Chris tion management Gait/Locom 2-20 Vj problems req otion 15:15: [id number] 00 Allergies, Adverse Reactions, Alerts Allergy Allergy [...]
--- OUTSIDE RECORDS SUMMARY | 2019-12-21 18:12 | XMS REPORT ---
:1937 Author Organization [facility] Care Team Providers Name Role Phone Unavailable Unavailable Unavailable Problems Condition Condition Condition Status Onset Resolution Last Treating Comments Name Details Category Date Date Treatment Clinician Date Bifascicula Bifascicula Diagnosis Active Chris r block r block Vj [id number] Unspecified Unspecified Diagnosis Active Chris atrial atrial 10-13 Vj fibrillatio fibrillatio [id number] n n Heart Heart Diagnosis Active Chris failure, failure, -17 Vj unspecified unspecified [id number] Age-related Age-related Diagnosis Active Chris physical physical 09-24 Vj debility debility [id number] Pain in Pain in Diagnosis Active Chris right right 1 Vj shoulder shoulder [id number] Presence of Presence of Diagnosis Active Chris right right Vj artificial artificial [id number] hip joint 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) (current) Vj use of use of [id number] anticoagula anticoagula nts nts Pain frequent Pain Mgmt Active Johana pain - (Mitchell) 09:50: Hassan 00 [id number] Cardio edema Cardiovasc Active Johana ular - (Mitchell) 09:50: Hassan 00 [id number] Respiratory dyspnea Respirator Active 0 Johana present y - (Mitchell) 09:50: Hassan 00 [id number] Endo/Basim anti-coagul Endo/Basim Active Johana ation - (Mitchell) therapy 09:50: Hassan 00 [id number] Sensory impaired Sensory Active 0 Johana hearing - (Mitchell) 09:50: Hassan 00 [id number] Integument skin Integument Active Johana integrity - (Mitchell) risk 09:50: Hassan 00 [id number] Elimination urinary Eliminatio Active 2020-0 Johana incontinenc n 10-14 (Mitchell) e 09:50: Hassan [id number] Neuro confusion Neuro/Emot Active 2020-0 Johana present ion 10-14 (Mitchell) 09:50: Hassan [id number] Neuro impaired Neuro/Emot Active 2020-0 Johana decision-ma ion 10-14 (Mitchell) otilia 09:50: Hassan [id number] Neuro memory Neuro/Emot Active 2019-0 Johana deficit ion 10-14 (Mitchell) needing 09:50: Hassan supervision 00 [id number] Activity ADL Activity Active 2019-0 Johana assistance 10-14 (Mitchell) required 09:50: Hassan [id number] Activity self-care Activity Active 2019-0 Johana deficit 10-14 (Mitchell) 09:50: Hassan [id number] Safety cannot be Safety Active 2019-0 Johana left alone 10-14 (Mitchell) 09:50: Hassan [id number] Safety fall risk Safety Active 2020-0 Johana factor 10-14 (Mitchell) present 09:50: Hassan [id number] Safety risk for Safety Active 2019-0 Johana hospitaliza 10-14 (Mitchell) tion 09:50: Hassan [id number] Medication oral med Meds Active 2019-0 Johana assistance 10-14 (Mitchell) required 09:50: Hassan [id number] Musculoskel transfer Musculoske Active 2019-0 Johana etal assistance letal 10-14 (Mitchell) required 09:50: Hassan [id number] Musculoskel requires Musculoske Active 2019-0 Johana etal human letal 10-14 (Mitchell) assist to 09:50: Hassan leave home 00 [id number] Activity knowledge/s Activity Active 2020-0 Chris kill 10-14 Vj deficit: pt 16:30: [id number] 00 Safety knowledge/s Safety Active 2020-0 Chris kill 10-14 Vj deficit: pt 16:30: [id number] 00 Safety can be left Safety Active 2020-0 Chris alone for 10-14 Vj only short 16:30: [id number] periods 00 Bed mobility/tr PT/OT: Bed Active 2020-0 Chris Mobility/Tr ansfer Mobility/T 10-14 Vj ansfer device ransfer 16:30: [id number] present 00 Bed transfer PT/OT: Bed Active 2020-0 Chris Mobility/Tr deficit: Mobility/T 1- Vj biggs sit/stand ransfer 16:30: [id number] 00 Bed transfer PT/OT: Bed Active 2019-0 Chris Mobility/Tr deficit: Mobility/T 10-14 Vj biggs toilet/comm ransfer 16:30: [id number] ode 00 Bed knowledge/s PT/OT: Bed Active 2019-0 Chris Mobility/Tr kill Mobility/T 10-14 Vj ansfer deficit: pt ransfer 16:30: [id number] 00 Bed bed PT/OT: Bed Active 2019-0 Chris Mobility/Tr mobility Mobility/T 10-14 Vj sheehanfer deficit ransfer 16:30: [id number] 00 Balance/End balance/housekeeper cleaning cooking PT/OT: Active 2019-0 Chris urance rdination Balance/En 10-14 Vj deficit durance 16:30: [id number] 00 Balance/End endurance PT/OT: Active 2019-0 Chris urance deficit Balance/En 10-14 Vj durance 16:30: [id number] 00 Balance/End knowledge/s PT/OT: Active 2019-0 Chris urance kill Balance/En 10-14 Vj deficit: pt durance 16:30: [id number] 00 Balance/End knowledge/s PT/OT: Active 2019-0 Chris urance kill Balance/En 10-14 Vj deficit: cg durance 16:30: [id number] 00 Gait/Locomo gait PT/OT: Active 2019-0 Chris tion assistive Gait/Locom - Vj problems device otion 16:30: [id number] present 00 Gait/Locomo knowledge/s PT/OT: Active 2019-0 Chris tion kill Gait/Locom - Vj problems deficit: pt otion 16:30: [id number] 00 Gait/Locomo gait PT/OT: Active 2019-0 Chris tion deficit Gait/Locom - Vj problems otion 16:30: [id number] 00 Respiratory oxygen Respirator Active 2020-0 Chris treatments y 2-13 Vj in home [id number] Bed transfer PT/OT: Bed Active 2020-0 Chris Mobility/Tr deficit: Mobility/T 2-20 Vj ansfer shower/tub ransfer 15:15: [id number] 00 Bed transfer PT/OT: Bed Active Chris Mobility/Tr deficit: Mobility/T 2-20 Vj biggs vehicle ransfer 15:15: [id number] 00 Gait/Locomo stair PT/OT: Active Chris tion management Gait/Locom 2-20 Vj problems req otion 15:15: [id number] 00 Allergies, Adverse Reactions, Alerts Allergy Allergy [...]
--- OUTSIDE RECORDS SUMMARY | 2019-12-21 18:12 | XMS REPORT ---
:1935 Author Organization [facility] Care Team Providers Name Role Phone Unavailable Unavailable Unavailable Problems Condition Condition Condition Status Onset Resolution Last Treating Comments Name Details Category Date Date Treatment Clinician Date Bifascicula Bifascicula Diagnosis Active Chris r block r block Vj [id number] Unspecified Unspecified Diagnosis Active Chris atrial atrial - Vj fibrillatio fibrillatio [id number] n n Heart Heart Diagnosis Active Chris failure, failure, - Vj unspecified unspecified [id number] Age-related Age-related Diagnosis Active Chris physical physical 1- Vj debility debility [id number] Pain in Pain in Diagnosis Active Chris right right 1- Vj shoulder shoulder [id number] Presence of Presence of Diagnosis Active Chris right right Vj artificial artificial [id number] hip joint 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) (current) Vj use of use of [id number] anticoagula anticoagula nts nts Pain frequent Pain Mgmt Resolve 2019-12-04 Johana pain d - 15:40:00 (Mitchell) 09:50: Hassan 00 [id number] Cardio edema Cardiovasc Resolve 2019-12-04 Johana ular d 10-14 15:40:00 (Mitchell) 09:50: Hassan 00 [id number] Respiratory dyspnea Respirator Resolve 2019-12-04 Johana present y d 10-14 15:40:00 (Mitchell) 09:50: Hassan 00 [id number] Endo/Basim anti-coagul Endo/Basim Resolve 2019-12-04 Johana ation d 10-14 15:40:00 (Mitchell) therapy 09:50: Hassan 00 [id number] Sensory impaired Sensory Resolve 2019-12-04 Johana hearing d 10-14 15:40:00 (Mitchell) 09:50: Hassan 00 [id number] Integument skin Integument Resolve 2019-12-04 Johana integrity d 10-14 15:40:00 (Mitchell) risk 09:50: Hassan 00 [id number] Elimination urinary Eliminatio Resolve 2019-12-04 Johana incontinenc n d 10-14 15:40:00 (Mitchell) e 09:50: Hassan 00 [id number] Neuro confusion Neuro/Emot Resolve 2019-12-04 Johana present ion d 10-14 15:40:00 (Mitchell) 09:50: Hassan 00 [id number] Neuro impaired Neuro/Emot Resolve 2019-12-04 Johana decision-ma ion d 10-14 15:40:00 (Mitchell) otilia 09:50: Hassan 00 [id number] Neuro memory Neuro/Emot Resolve 2019-12-04 Johana deficit ion d 10-14 15:40:00 (Mitchell) needing 09:50: Hassan supervision 00 [id number] Activity ADL Activity Resolve 2019-12-04 Johana assistance d 10-14 15:40:00 (Mitchell) required 09:50: Hassan [id number] Activity self-care Activity Resolve 2019-12-04 Johana deficit d 10-14 15:40:00 (Mitchell) 09:50: Hassan 00 [id number] Safety cannot be Safety Resolve 2019-12-04 Johana left alone d 10-14 15:40:00 (Mitchell) 09:50: Hassan 00 [id number] Safety fall risk Safety Resolve 2019-12-04 Johana factor d 10-14 15:40:00 (Mitchell) present 09:50: Hassan [id number] Safety risk for Safety Resolve 2019-12-04 Johana hospitaliza d 10-14 15:40:00 (Mitchell) tion 09:50: Hassan 00 [id number] Medication oral med Meds Resolve 2019-12-04 Johana assistance d 10-14 15:40:00 (Mitchell) required 09:50: Hassan 00 [id number] Musculoskel transfer Musculoske Resolve 2019-12-04 Johana etal assistance letal d 10-14 15:40:00 (Mitchell) required 09:50: Hassan 00 [id number] Musculoskel requires Musculoske Resolve 2019-12-04 Johana etal human letal d 10-14 15:40:00 (Mitchell) assist to 09:50: Hassan leave home 00 [id number] Activity knowledge/s Activity Resolve 2019-12-04 Chris kill d 10-14 15:40:00 Vj deficit: pt 16:30: [id number] 00 Safety knowledge/s Safety Resolve 2019-12-04 Chris kill d 10-14 15:40:00 Vj deficit: pt 16:30: [id number] 00 Safety can be left Safety Resolve 2019-12-04 Chris alone for d 10-14 15:40:00 Vj only short 16:30: [id number] periods 00 Bed mobility/tr PT/OT: Bed Resolve 2019-12-04 Chris Mobility/Tr ansfer Mobility/T d 10-14 15:40:00 Vj sheehanfer device ransfer 16:30: [id number] present 00 Bed transfer PT/OT: Bed Resolve 2019-12-04 Chris Mobility/Tr deficit: Mobility/T d 10-14 15:40:00 Vj biggs sit/stand ransfer 16:30: [id number] 00 Bed transfer PT/OT: Bed Resolve 2019-12-04 Chris Mobility/Tr deficit: Mobility/T d 10-14 15:40:00 Vj sheehanfer toilet/comm ransfer 16:30: [id number] ode 00 Bed knowledge/s PT/OT: Bed Resolve 2019-12-04 Chris Mobility/Tr kill Mobility/T d 10-14 15:40:00 Vj ansfer deficit: pt ransfer 16:30: [id number] 00 Bed bed PT/OT: Bed Resolve 2019-12-04 Chris Mobility/Tr mobility Mobility/T d 10-14 15:40:00 Vj ansfer deficit ransfer 16:30: [id number] 00 Balance/End balance/talent development coordinator PT/OT: Resolve 2019-12-04 Chris urance rdination Balance/En d 10-14 15:40:00 Vj deficit durance 16:30: [id number] 00 Balance/End endurance PT/OT: Resolve 2019-12-04 Chris urance deficit Balance/En d 10-14 15:40:00 Vj durance 16:30: [id number] 00 Balance/End knowledge/s PT/OT: Resolve 2019-12-04 Chris urance kill Balance/En d 10-14 15:40:00 Vj deficit: pt durance 16:30: [id number] 00 Balance/End knowledge/s PT/OT: Resolve 2019-12-04 Chris urance kill Balance/En d 10-14 15:40:00 Vj deficit: cg durance 16:30: [id number] 00 Gait/Locomo gait PT/OT: Resolve 2019-12-04 Chris tion assistive Gait/Locom d 10-14 15:40:00 Vj problems device otion 16:30: [id number] present 00 Gait/Locomo knowledge/s PT/OT: Resolve 2019-12-04 Chris tion kill Gait/Locom d 10-14 15:40:00 Vj problems deficit: pt otion 16:30: [id number] 00 Gait/Locomo gait PT/OT: Resolve 2019-12-04 Chris tion deficit Gait/Locom d 10-14 15:40:00 Vj problems otion 16:30: [id number] 00 Respiratory oxygen Respirator Resolve 2019-12-04 Chris treatments y d 2-13 15:40:00 Vj in home [id number] Bed transfer PT/OT: Bed Resolve 2019-12-04 Chris Mobility/Tr deficit: Mobility/T d 2-20 15:40:00 Vj ansfer shower/tub ransfer 15:15: [id number] 00 Bed transfer PT/OT: Bed Resolve 2019-12-04 Chris Mobility/Tr deficit: Mobility/T d 2-20 15:40:00 Vj ansfer vehicle ransfer 15:15: [id number] 00 Gait/Locomo stair PT/OT: Resolve 2019-12-04 Chris tion management Gait/Locom d 2-20 15:40:00 Vj problems req otion 15:15: [id number] 00 Allergies, Adverse Reactions, Alerts Allergy Allergy [...]
--- OUTSIDE RECORDS SUMMARY | 2019-12-21 18:12 | XMS REPORT ---
:1935 Author Organization [facility] Care Team Providers Name Role Phone Unavailable Unavailable Unavailable Problems Condition Condition Condition Status Onset Resolution Last Treating Comments Name Details Category Date Date Treatment Clinician Date Bifascicula Bifascicula Diagnosis Active Chris r block r block Vj [id number] Unspecified Unspecified Diagnosis Active Chris atrial atrial 10-13 Vj fibrillatio fibrillatio [id number] n n Heart Heart Diagnosis Active Chris failure, failure, -17 Vj unspecified unspecified [id number] Age-related Age-related Diagnosis Active Chris physical physical 09-24 Vj debility debility [id number] Pain in Pain in Diagnosis Active Chris right right 1 Vj shoulder shoulder [id number] Presence of Presence of Diagnosis Active Chris right right Vj artificial artificial [id number] hip joint hip joint 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 Diagnosis Active Chris (current) (current) Vj use of use of [id number] anticoagula anticoagula nts nts Pain frequent Pain Mgmt Active Johana pain - (Mitchell) 09:50: Hassan 00 [id number] Cardio edema Cardiovasc Active Johana ular - (Mitchell) 09:50: Hassan 00 [id number] Respiratory dyspnea Respirator Active 0 Johana present y - (Mitchell) 09:50: Hassan 00 [id number] Endo/Basim anti-coagul Endo/Basim Active Johana ation - (Mitchell) therapy 09:50: Hassan 00 [id number] Sensory impaired Sensory Active 0 Johana hearing - (Mitchell) 09:50: Hassan 00 [id number] Integument skin Integument Active Johana integrity - (Mitchell) risk 09:50: Hassan 00 [id number] Elimination urinary Eliminatio Active 2020-0 Johana incontinenc n 10-14 (Mitchell) e 09:50: Hassan [id number] Neuro confusion Neuro/Emot Active 2020-0 Johana present ion 10-14 (Mitchell) 09:50: Hassan [id number] Neuro impaired Neuro/Emot Active 2020-0 Johana decision-ma ion 10-14 (Mitchell) otilia 09:50: Hassan [id number] Neuro memory Neuro/Emot Active 2019-0 Johana deficit ion 10-14 (Mitchell) needing 09:50: Hassan supervision 00 [id number] Activity ADL Activity Active 2019-0 Johana assistance 10-14 (Mitchell) required 09:50: Hassan [id number] Activity self-care Activity Active 2019-0 Johana deficit 10-14 (Mitchell) 09:50: Hassan [id number] Safety cannot be Safety Active 2019-0 Johana left alone 10-14 (Mitchell) 09:50: Hassan [id number] Safety fall risk Safety Active 2020-0 Johana factor 10-14 (Mitchell) present 09:50: Hassan [id number] Safety risk for Safety Active 2019-0 Johana hospitaliza 10-14 (Mitchell) tion 09:50: Hassan [id number] Medication oral med Meds Active 2019-0 Johana assistance 10-14 (Mitchell) required 09:50: Hassan [id number] Musculoskel transfer Musculoske Active 2019-0 Johana etal assistance letal 10-14 (Mitchell) required 09:50: Hassan [id number] Musculoskel requires Musculoske Active 2019-0 Johana etal human letal 10-14 (Mitchell) assist to 09:50: Hassan leave home 00 [id number] Activity knowledge/s Activity Active 2020-0 Chris kill 10-14 Vj deficit: pt 16:30: [id number] Safety knowledge/s Safety Active 2020-0 Chris kill 10-14 Vj deficit: pt 16:30: [id number] 00 Safety can be left Safety Active 2020-0 Chris alone for 10-14 Vj only short 16:30: [id number] periods 00 Bed mobility/tr PT/OT: Bed Active 2020-0 Chris Mobility/Tr ansfer Mobility/T 10-14 Vj ansfer device ransfer 16:30: [id number] present 00 Bed transfer PT/OT: Bed Active 2020-0 Chris Mobility/Tr deficit: Mobility/T 1- Vj biggs sit/stand ransfer 16:30: [id number] 00 Bed transfer PT/OT: Bed Active 2019-0 Chris Mobility/Tr deficit: Mobility/T 10-14 Vj biggs toilet/comm ransfer 16:30: [id number] ode 00 Bed knowledge/s PT/OT: Bed Active 2019-0 Chris Mobility/Tr kill Mobility/T 10-14 Vj ansfer deficit: pt ransfer 16:30: [id number] 00 Bed bed PT/OT: Bed Active 2019-0 Chris Mobility/Tr mobility Mobility/T 10-14 Vj sheehanfer deficit ransfer 16:30: [id number] 00 Balance/End balance/compliance coordinator PT/OT: Active 2019-0 Chris urance rdination Balance/En 10-14 Vj deficit durance 16:30: [id number] Balance/End endurance PT/OT: Active 2019-0 Chris urance deficit Balance/En 10-14 Vj durance 16:30: [id number] 00 Balance/End knowledge/s PT/OT: Active 2019-0 Chris urance kill Balance/En 10-14 Vj deficit: pt durance 16:30: [id number] 00 Balance/End knowledge/s PT/OT: Active 2019-0 Chris urance kill Balance/En 10-14 Vj deficit: cg durance 16:30: [id number] 00 Gait/Locomo gait PT/OT: Active 2019-0 Chris tion assistive Gait/Locom - Vj problems device otion 16:30: [id number] present 00 Gait/Locomo knowledge/s PT/OT: Active 2019-0 Chris tion kill Gait/Locom - Vj problems deficit: pt otion 16:30: [id number] 00 Gait/Locomo gait PT/OT: Active 2019-0 Chris tion deficit Gait/Locom - Vj problems otion 16:30: [id number] 00 Respiratory oxygen Respirator Active 2020-0 Chris treatments y 2-13 Vj in home [id number] Bed transfer PT/OT: Bed Active 2020-0 Chris Mobility/Tr deficit: Mobility/T 2-20 Vj ansfer shower/tub ransfer 15:15: [id number] 00 Bed transfer PT/OT: Bed Active 2019- Chris Mobility/Tr deficit: Mobility/T 2-20 Vj biggs vehicle ransfer 15:15: [id number] 00 Gait/Locomo stair PT/OT: Active Chris tion management Gait/Locom 2-20 Vj problems req otion 15:15: [id number] 00 Allergies, Adverse Reactions, Alerts Allergy Allergy [...]
--- OUTSIDE RECORDS SUMMARY | 2019-12-21 18:12 | XMS REPORT ---
:1935 Author Organization [facility] Care Team Providers Name Role Phone Unavailable Unavailable Unavailable Problems Condition Condition Condition Status Onset Resolution Last Treating Comments Name Details Category Date Date Treatment Clinician Date Bifascicula Bifascicula Diagnosis Active Chris r block r block Vj [id number] Unspecified Unspecified Diagnosis Active Chris atrial atrial 10-13 Vj fibrillatio fibrillatio [id number] n n Heart Heart Diagnosis Active Chris failure, failure, -17 Vj unspecified unspecified [id number] Age-related Age-related Diagnosis Active Chris physical physical 09-24 Vj debility debility [id number] Pain in Pain in Diagnosis Active Chris right right 1 Vj shoulder shoulder [id number] Presence of Presence of Diagnosis Active Chris right right Vj artificial artificial [id number] hip joint hip joint [facility] FCI Diagnosis Active Chris (current) (current) Vj use of use of [id number] anticoagula anticoagula nts nts Pain frequent Pain Mgmt Active Johana pain - (Mitchell) 09:50: Hassan 00 [id number] Cardio edema Cardiovasc Active Johana ular - (Mitchell) 09:50: Hassan 00 [id number] Respiratory dyspnea Respirator Active 0 Johana present y - (Mitchell) 09:50: Hassan 00 [id number] Endo/Basim anti-coagul Endo/Basim Active Johana ation - (Mitchell) therapy 09:50: Hassan 00 [id number] Sensory impaired Sensory Active 0 Johana hearing - (Mitchell) 09:50: Hassan 00 [id number] Integument skin Integument Active Johana integrity - (Mitchell) risk 09:50: Hassan [id number] Elimination urinary Eliminatio Active 2020-0 Johana incontinenc n 10-14 (Mitchell) e 09:50: Hassan [id number] Neuro confusion Neuro/Emot Active 2020-0 Johana present ion 10-14 (Mitchell) 09:50: Hassan [id number] Neuro impaired Neuro/Emot Active 2020-0 Johana decision-ma ion 10-14 (Mitchell) otilia 09:50: Ahssan [id number] Neuro memory Neuro/Emot Active 2019-0 Johana deficit ion 10-14 (Mitchell) needing 09:50: Hassan supervision 00 [id number] Activity ADL Activity Active 2019-0 Johana assistance 10-14 (Mitchell) required 09:50: Hassan [id number] Activity self-care Activity Active 2019-0 Johana deficit 10-14 (Mitchell) 09:50: Hassan [id number] Safety cannot be Safety Active 2019-0 Johana left alone 10-14 (Mitchell) 09:50: Hassan [id number] Safety fall risk Safety Active 2020-0 Johana factor 10-14 (Mitchell) present 09:50: Hassan [id number] Safety risk for Safety Active 2019-0 Johana hospitaliza 10-14 (Mitchell) tion 09:50: Hassan [id number] Medication oral med Meds Active 2019-0 Johana assistance 10-14 (Mitchell) required 09:50: Hassan [id number] Musculoskel transfer Musculoske Active 2019-0 Johana etal assistance letal 10-14 (Mitchell) required 09:50: Hassan [id number] Musculoskel requires Musculoske Active 2019-0 Johana etal human letal 10-14 (Mitchell) assist to 09:50: Hassan leave home 00 [id number] Activity knowledge/s Activity Active 2020-0 Chris kill 10-14 Vj deficit: pt 16:30: [id number] Safety knowledge/s Safety Active 2020-0 Chris kill 10-14 Vj deficit: pt 16:30: [id number] 00 Safety can be left Safety Active 2020-0 Chris alone for 10-14 Vj only short 16:30: [id number] periods 00 Bed mobility/tr PT/OT: Bed Active 2020-0 Chris Mobility/Tr ansfer Mobility/T 10-14 Vj ansfer device ransfer 16:30: [id number] present 00 Bed transfer PT/OT: Bed Active 2020-0 Chris Mobility/Tr deficit: Mobility/T 1- Vj biggs sit/stand ransfer 16:30: [id number] 00 Bed transfer PT/OT: Bed Active 2019-0 Chris Mobility/Tr deficit: Mobility/T 10-14 Vj biggs toilet/comm ransfer 16:30: [id number] ode 00 Bed knowledge/s PT/OT: Bed Active 2019-0 Chris Mobility/Tr kill Mobility/T 10-14 Vj ansfer deficit: pt ransfer 16:30: [id number] 00 Bed bed PT/OT: Bed Active 2019-0 Chris Mobility/Tr mobility Mobility/T 10-14 Vj sheehanfer deficit ransfer 16:30: [id number] 00 Balance/End balance/residential coordinator PT/OT: Active 2019-0 Chris urance rdination Balance/En 10-14 Vj deficit durance 16:30: [id number] 00 Balance/End endurance PT/OT: Active 2019-0 Chris urance deficit Balance/En 10-14 Vj durance 16:30: [id number] 00 Balance/End knowledge/s PT/OT: Active 2019-0 Chris urance kill Balance/En 10-14 Vj deficit: pt durance 16:30: [id number] 00 Balance/End knowledge/s PT/OT: Active 2019-0 Chris urance kill Balance/En 10-14 Vj deficit: cg durance 16:30: [id number] 00 Gait/Locomo gait PT/OT: Active 2019-0 Chris tion assistive Gait/Locom - Vj problems device otion 16:30: [id number] present 00 Gait/Locomo knowledge/s PT/OT: Active 2019-0 Chris tion kill Gait/Locom - Vj problems deficit: pt otion 16:30: [id number] 00 Gait/Locomo gait PT/OT: Active 2019-0 Chris tion deficit Gait/Locom - Vj problems otion 16:30: [id number] 00 Respiratory oxygen Respirator Active 2020-0 Chris treatments y 2-13 Vj in home [id number] Bed transfer PT/OT: Bed Active 2020-0 Chris Mobility/Tr deficit: Mobility/T 2-20 Vj ansfer shower/tub ransfer 15:15: [id number] 00 Bed transfer PT/OT: Bed Active 2019- Chris Mobility/Tr deficit: Mobility/T 2-20 Vj biggs vehicle ransfer 15:15: [id number] 00 Gait/Locomo stair PT/OT: Active Chris tion management Gait/Locom 2-20 Vj problems req otion 15:15: [id number] 00 Allergies, Adverse Reactions, Alerts Allergy Allergy [...] Observation Time Observation Value Comments SYSTOLIC mm[Hg] 2019-11-26 18:10:42 142 mm[Hg] mm[Hg] Method: Sit SYSTOLIC mm[Hg] 2019-10-16 18:10:01 112 mm[Hg] mm[Hg] Method: Stand DIASTOLIC mm[Hg] 2019-11-26 18:10:42 76 mm[Hg] mm[Hg] Method: Sit DIASTOLIC mm[Hg] 2019-10-16 18:10:01 64 mm[Hg] mm[Hg] Method: Stand PULSE 2019-11-26 18:10:42 82 /min /min RESP RATE 2019-10-16 18:10:01 16 /min /min TEMP 2019-10-15 18:10:00 98.3 [degF] Procedures This patient has no known procedures. Results This patient has no known results.
--- OUTSIDE RECORDS SUMMARY | 2019-12-21 18:12 | XMS REPORT ---
:1935 Author Organization [facility] Care Team Providers Name Role Phone Unavailable Unavailable Unavailable Problems Condition Condition Condition Status Onset Resolution Last Treating Comments Name Details Category Date Date Treatment Clinician Date Bifascicula Bifascicula Diagnosis Active Chris r block r block Vj [id number] Unspecified Unspecified Diagnosis Active Chris atrial atrial - Vj fibrillatio fibrillatio [id number] n n Heart Heart Diagnosis Active Chris failure, failure, - Vj unspecified unspecified [id number] Age-related Age-related Diagnosis Active Chris physical physical 1- Vj debility debility [id number] Pain in Pain in Diagnosis Active Chris right right 1 Vj shoulder shoulder [id number] Presence of Presence of Diagnosis Active Chris right right Vj artificial artificial [id number] hip joint 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) (current) Vj use of use of [id number] anticoagula anticoagula nts nts Pain frequent Pain Mgmt Resolve 2019-12-04 Johana pain d - 15:40:00 (Mitchell) 09:50: Hassan 00 [id number] Cardio edema Cardiovasc Resolve 2019-12-04 Johana ular d 10-14 15:40:00 (Mitchell) 09:50: Hassan 00 [id number] Respiratory dyspnea Respirator Resolve 2019-12-04 Johana present y d 10-14 15:40:00 (Mitchell) 09:50: Hassan 00 [id number] Endo/Basim anti-coagul Endo/Basim Resolve 2019-12-04 Johana ation d 10-14 15:40:00 (Mitchell) therapy 09:50: Hassan 00 [id number] Sensory impaired Sensory Resolve 2019-12-04 Johana hearing d 10-14 15:40:00 (Mitchell) 09:50: Hassan 00 [id number] Integument skin Integument Resolve 2019-12-04 Johana integrity d 10-14 15:40:00 (Mitchell) risk 09:50: Hassan 00 [id number] Elimination urinary Eliminatio Resolve 2019-12-04 Johana incontinenc n d 10-14 15:40:00 (Mitchell) e 09:50: Hassan 00 [id number] Neuro confusion Neuro/Emot Resolve 2019-12-04 Johana present ion d 10-14 15:40:00 (Mitchell) 09:50: Hassan 00 [id number] Neuro impaired Neuro/Emot Resolve 2019-12-04 Johana decision-ma ion d 10-14 15:40:00 (Mitchell) otilia 09:50: Hassan 00 [id number] Neuro memory Neuro/Emot Resolve 2019-12-04 Johana deficit ion d 10-14 15:40:00 (Mitchell) needing 09:50: Hassan supervision 00 [id number] Activity ADL Activity Resolve 2019-12-04 Johana assistance d 10-14 15:40:00 (Mitchell) required 09:50: Hassan [id number] Activity self-care Activity Resolve 2019-12-04 Johana deficit d 10-14 15:40:00 (Mitchell) 09:50: Hassan 00 [id number] Safety cannot be Safety Resolve 2019-12-04 Johana left alone d 10-14 15:40:00 (Mitchell) 09:50: Hassan 00 [id number] Safety fall risk Safety Resolve 2019-12-04 Johana factor d 10-14 15:40:00 (Mitchell) present 09:50: Hassan [id number] Safety risk for Safety Resolve 2019-12-04 Johana hospitaliza d 10-14 15:40:00 (Mitchell) tion 09:50: Hassan 00 [id number] Medication oral med Meds Resolve 2019-12-04 Johana assistance d 10-14 15:40:00 (Mitchell) required 09:50: Hassan 00 [id number] Musculoskel transfer Musculoske Resolve 2019-12-04 Johana etal assistance letal d 10-14 15:40:00 (Mitchell) required 09:50: Hassan 00 [id number] Musculoskel requires Musculoske Resolve 2019-12-04 Johana etal human letal d 10-14 15:40:00 (Mitchell) assist to 09:50: Hassan leave home 00 [id number] Activity knowledge/s Activity Resolve 2019-12-04 Chris kill d 10-14 15:40:00 Vj deficit: pt 16:30: [id number] Safety knowledge/s Safety Resolve 2019-12-04 Chris kill d 10-14 15:40:00 Vj deficit: pt 16:30: [id number] 00 Safety can be left Safety Resolve 2019-12-04 Chris alone for d 10-14 15:40:00 Vj only short 16:30: [id number] periods 00 Bed mobility/tr PT/OT: Bed Resolve 2019-12-04 Chris Mobility/Tr ansfer Mobility/T d 10-14 15:40:00 Vj sheehanfer device ransfer 16:30: [id number] present 00 Bed transfer PT/OT: Bed Resolve 2019-12-04 Chris Mobility/Tr deficit: Mobility/T d 10-14 15:40:00 Vj biggs sit/stand ransfer 16:30: [id number] 00 Bed transfer PT/OT: Bed Resolve 2019-12-04 Chris Mobility/Tr deficit: Mobility/T d 10-14 15:40:00 Vj sheehanfer toilet/comm ransfer 16:30: [id number] ode 00 Bed knowledge/s PT/OT: Bed Resolve 2019-12-04 Chris Mobility/Tr kill Mobility/T d 10-14 15:40:00 Vj ansfer deficit: pt ransfer 16:30: [id number] 00 Bed bed PT/OT: Bed Resolve 2019-12-04 Chris Mobility/Tr mobility Mobility/T d 10-14 15:40:00 Vj ansfer deficit ransfer 16:30: [id number] 00 Balance/End balance/enrollment management coordinator PT/OT: Resolve 2019-12-04 Chris urance rdination Balance/En d 10-14 15:40:00 Vj deficit durance 16:30: [id number] 00 Balance/End endurance PT/OT: Resolve 2019-12-04 Chris urance deficit Balance/En d 10-14 15:40:00 Vj durance 16:30: [id number] 00 Balance/End knowledge/s PT/OT: Resolve 2019-12-04 Chris urance kill Balance/En d 10-14 15:40:00 Vj deficit: pt durance 16:30: [id number] 00 Balance/End knowledge/s PT/OT: Resolve 2019-12-04 Chris urance kill Balance/En d 10-14 15:40:00 Vj deficit: cg durance 16:30: [id number] 00 Gait/Locomo gait PT/OT: Resolve 2019-12-04 Chris tion assistive Gait/Locom d 10-14 15:40:00 Vj problems device otion 16:30: [id number] present 00 Gait/Locomo knowledge/s PT/OT: Resolve 2019-12-04 Chris tion kill Gait/Locom d 10-14 15:40:00 Vj problems deficit: pt otion 16:30: [id number] 00 Gait/Locomo gait PT/OT: Resolve 2019-12-04 Chris tion deficit Gait/Locom d 10-14 15:40:00 Vj problems otion 16:30: [id number] 00 Respiratory oxygen Respirator Resolve 2019-12-04 Chris treatments y d 2-13 15:40:00 Vj in home [id number] Bed transfer PT/OT: Bed Resolve 2019-12-04 Chris Mobility/Tr deficit: Mobility/T d 2-20 15:40:00 Vj ansfer shower/tub ransfer 15:15: [id number] 00 Bed transfer PT/OT: Bed Resolve 2019-12-04 Chris Mobility/Tr deficit: Mobility/T d 2-20 15:40:00 Vj ansfer vehicle ransfer 15:15: [id number] 00 Gait/Locomo stair PT/OT: Resolve 2019-12-04 Chris tion management Gait/Locom d 2-20 15:40:00 Vj problems req otion 15:15: [id number] 00 Allergies, Adverse Reactions, Alerts Allergy Allergy [...]
--- OUTSIDE RECORDS SUMMARY | 2019-12-21 18:12 | XMS REPORT ---
:1935 Author Organization [facility] Care Team Providers Name Role Phone Unavailable Unavailable Unavailable Problems Condition Condition Condition Status Onset Resolution Last Treating Comments Name Details Category Date Date Treatment Clinician Date Bifascicula Bifascicula Diagnosis Active Chris r block r block Vj [id number] Unspecified Unspecified Diagnosis Active Chris atrial atrial - Vj fibrillatio fibrillatio [id number] n n Heart Heart Diagnosis Active Chris failure, failure, - Vj unspecified unspecified [id number] Age-related Age-related Diagnosis Active Chris physical physical 1- Vj debility debility [id number] Pain in Pain in Diagnosis Active Chris right right 1 Vj shoulder shoulder [id number] Presence of 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 hip joint 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 Diagnosis Active Chris (current) (current) Vj use of use of [id number] anticoagula anticoagula nts nts Pain frequent Pain Mgmt Resolve 2019-12-04 Johana pain d - 15:40:00 (Mitchell) 09:50: Hassan 00 [id number] Cardio edema Cardiovasc Resolve 2019-12-04 Johana ular d 10-14 15:40:00 (Mitchell) 09:50: Hassan 00 [id number] Respiratory dyspnea Respirator Resolve 2019-12-04 Johana present y d 10-14 15:40:00 (Mitchell) 09:50: Hassan 00 [id number] Endo/Basim anti-coagul Endo/Basim Resolve 2019-12-04 Johana ation d 10-14 15:40:00 (Mitchell) therapy 09:50: Hassan 00 [id number] Sensory impaired Sensory Resolve 2019-12-04 Johana hearing d 10-14 15:40:00 (Mitchell) 09:50: Hassan 00 [id number] Integument skin Integument Resolve 2019-12-04 Johana integrity d 10-14 15:40:00 (Mitchell) risk 09:50: Hassan 00 [id number] Elimination urinary Eliminatio Resolve 2019-12-04 Johana incontinenc n d 10-14 15:40:00 (Mitchell) e 09:50: Hassan 00 [id number] Neuro confusion Neuro/Emot Resolve 2019-12-04 Johana present ion d 10-14 15:40:00 (Mitchell) 09:50: Hassan 00 [id number] Neuro impaired Neuro/Emot Resolve 2019-12-04 Johana decision-ma ion d 10-14 15:40:00 (Mitchell) otilia 09:50: Hassan 00 [id number] Neuro memory Neuro/Emot Resolve 2019-12-04 Johana deficit ion d 10-14 15:40:00 (Mitchell) needing 09:50: Hassan supervision 00 [id number] Activity ADL Activity Resolve 2019-12-04 Johana assistance d 10-14 15:40:00 (Mitchell) required 09:50: Hassan [id number] Activity self-care Activity Resolve 2019-12-04 Johana deficit d 10-14 15:40:00 (Mitchell) 09:50: Hassan 00 [id number] Safety cannot be Safety Resolve 2019-12-04 Johana left alone d 10-14 15:40:00 (Mitchell) 09:50: Hassan 00 [id number] Safety fall risk Safety Resolve 2019-12-04 Johana factor d 10-14 15:40:00 (Mitchell) present 09:50: Hassan [id number] Safety risk for Safety Resolve 2019-12-04 Johana hospitaliza d 10-14 15:40:00 (Mitchell) tion 09:50: Hassan 00 [id number] Medication oral med Meds Resolve 2019-12-04 Johana assistance d 10-14 15:40:00 (Mitchell) required 09:50: Hassan 00 [id number] Musculoskel transfer Musculoske Resolve 2019-12-04 Johana etal assistance letal d 10-14 15:40:00 (Mitchell) required 09:50: Hassan 00 [id number] Musculoskel requires Musculoske Resolve 2019-12-04 Johana etal human letal d 10-14 15:40:00 (Mitchell) assist to 09:50: Hassan leave home 00 [id number] Activity knowledge/s Activity Resolve 2019-12-04 Chris kill d 10-14 15:40:00 Vj deficit: pt 16:30: [id number] Safety knowledge/s Safety Resolve 2019-12-04 Chris kill d 10-14 15:40:00 Vj deficit: pt 16:30: [id number] 00 Safety can be left Safety Resolve 2019-12-04 Chris alone for d 10-14 15:40:00 Vj only short 16:30: [id number] periods 00 Bed mobility/tr PT/OT: Bed Resolve 2019-12-04 Chris Mobility/Tr ansfer Mobility/T d 10-14 15:40:00 Vj sheehanfer device ransfer 16:30: [id number] present 00 Bed transfer PT/OT: Bed Resolve 2019-12-04 Chris Mobility/Tr deficit: Mobility/T d 10-14 15:40:00 Vj biggs sit/stand ransfer 16:30: [id number] 00 Bed transfer PT/OT: Bed Resolve 2019-12-04 Chris Mobility/Tr deficit: Mobility/T d 10-14 15:40:00 Vj sheehanfer toilet/comm ransfer 16:30: [id number] ode 00 Bed knowledge/s PT/OT: Bed Resolve 2019-12-04 Chris Mobility/Tr kill Mobility/T d 10-14 15:40:00 Vj ansfer deficit: pt ransfer 16:30: [id number] 00 Bed bed PT/OT: Bed Resolve 2019-12-04 Chris Mobility/Tr mobility Mobility/T d 10-14 15:40:00 Vj ansfer deficit ransfer 16:30: [id number] 00 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 PT/OT: Resolve 2019-12-04 Chris urance rdination Balance/En d 10-14 15:40:00 Vj deficit durance 16:30: [id number] Balance/End endurance PT/OT: Resolve 2019-12-04 Chris urance deficit Balance/En d 10-14 15:40:00 Vj durance 16:30: [id number] 00 Balance/End knowledge/s PT/OT: Resolve 2019-12-04 Chris urance kill Balance/En d 10-14 15:40:00 Vj deficit: pt durance 16:30: [id number] 00 Balance/End knowledge/s PT/OT: Resolve 2019-12-04 Chris urance kill Balance/En d 10-14 15:40:00 Vj deficit: cg durance 16:30: [id number] 00 Gait/Locomo gait PT/OT: Resolve 2019-12-04 Chris tion assistive Gait/Locom d 10-14 15:40:00 Vj problems device otion 16:30: [id number] present 00 Gait/Locomo knowledge/s PT/OT: Resolve 2019-12-04 Chris tion kill Gait/Locom d 10-14 15:40:00 Vj problems deficit: pt otion 16:30: [id number] 00 Gait/Locomo gait PT/OT: Resolve 2019-12-04 Chris tion deficit Gait/Locom d 10-14 15:40:00 Vj problems otion 16:30: [id number] 00 Respiratory oxygen Respirator Resolve 2019-12-04 Chris treatments y d 2-13 15:40:00 Vj in home [id number] Bed transfer PT/OT: Bed Resolve 2019-12-04 Chris Mobility/Tr deficit: Mobility/T d 2-20 15:40:00 Vj ansfer shower/tub ransfer 15:15: [id number] 00 Bed transfer PT/OT: Bed Resolve 2019-12-04 Chris Mobility/Tr deficit: Mobility/T d 2-20 15:40:00 Vj ansfer vehicle ransfer 15:15: [id number] 00 Gait/Locomo stair PT/OT: Resolve 2019-12-04 Chris tion management Gait/Locom d 2-20 15:40:00 Vj problems req otion 15:15: [id number] 00 Allergies, Adverse Reactions, Alerts Allergy Allergy [...]
--- OUTSIDE RECORDS SUMMARY | 2019-12-21 18:12 | XMS REPORT ---
:1935 Author Organization [facility] Care Team Providers Name Role Phone Unavailable Unavailable Unavailable Problems Condition Condition Condition Status Onset Resolution Last Treating Comments Name Details Category Date Date Treatment Clinician Date Bifascicula Bifascicula Diagnosis Active Chris r block r block Vj [id number] Unspecified Unspecified Diagnosis Active Chris atrial atrial 10-13 Vj fibrillatio fibrillatio [id number] n n Heart Heart Diagnosis Active Chris failure, failure, -17 Vj unspecified unspecified [id number] Age-related Age-related Diagnosis Active Chris physical physical 09-24 Vj debility debility [id number] Pain in Pain in Diagnosis Active Chris right right 1 Vj shoulder shoulder [id number] Presence of Presence of Diagnosis Active Chris right right Vj artificial artificial [id number] hip joint hip joint longterm longterm Diagnosis Active Chris (current) (current) Vj use of use of [id number] anticoagula anticoagula nts nts Pain frequent Pain Mgmt Active Johana pain - (Mitchell) 09:50: Hassan 00 [id number] Cardio edema Cardiovasc Active Johana ular - (Mitchell) 09:50: Hassan 00 [id number] Respiratory dyspnea Respirator Active 0 Johana present y - (Mitchell) 09:50: Hassan 00 [id number] Endo/Basim anti-coagul Endo/Basim Active Johana ation - (Mitchell) therapy 09:50: Hassan 00 [id number] Sensory impaired Sensory Active 0 Johana hearing - (Mitchell) 09:50: Hassan 00 [id number] Integument skin Integument Active Johana integrity - (Mitchell) risk 09:50: Hassan 00 [id number] Elimination urinary Eliminatio Active 2020-0 Johana incontinenc n 10-14 (Mitchell) e 09:50: Hassan [id number] Neuro confusion Neuro/Emot Active 2020-0 Johana present ion 10-14 (Mitchell) 09:50: Hassan [id number] Neuro impaired Neuro/Emot Active 2020-0 Johana decision-ma ion 10-14 (Mitchell) otilia 09:50: Hassan [id number] Neuro memory Neuro/Emot Active 2019-0 Johana deficit ion 10-14 (Mitchell) needing 09:50: Hassan supervision 00 [id number] Activity ADL Activity Active 2019-0 Johana assistance 10-14 (Mitchell) required 09:50: Hassan [id number] Activity self-care Activity Active 2019-0 Johana deficit 10-14 (Mitchell) 09:50: Hassan [id number] Safety cannot be Safety Active 2019-0 Johana left alone 10-14 (Mitchell) 09:50: Hassan [id number] Safety fall risk Safety Active 2020-0 Johana factor 10-14 (Mitchell) present 09:50: Hassan [id number] Safety risk for Safety Active 2019-0 Johana hospitaliza 10-14 (Mitchell) tion 09:50: Hassan [id number] Medication oral med Meds Active 2019-0 Johana assistance 10-14 (Mitchell) required 09:50: Hassan [id number] Musculoskel transfer Musculoske Active 2019-0 Johana etal assistance letal 10-14 (Mitchell) required 09:50: Hassan [id number] Musculoskel requires Musculoske Active 2019-0 Johana etal human letal 10-14 (Mitchell) assist to 09:50: Hassan leave home 00 [id number] Activity knowledge/s Activity Active 2020-0 Chris kill 10-14 Vj deficit: pt 16:30: [id number] Safety knowledge/s Safety Active 2020-0 Chris kill 10-14 Vj deficit: pt 16:30: [id number] 00 Safety can be left Safety Active 2020-0 Chris alone for 10-14 Vj only short 16:30: [id number] periods 00 Bed mobility/tr PT/OT: Bed Active 2020-0 Chris Mobility/Tr ansfer Mobility/T 10-14 Vj ansfer device ransfer 16:30: [id number] present 00 Bed transfer PT/OT: Bed Active 2020-0 Chris Mobility/Tr deficit: Mobility/T 1- Vj biggs sit/stand ransfer 16:30: [id number] 00 Bed transfer PT/OT: Bed Active 2019-0 Chris Mobility/Tr deficit: Mobility/T 10-14 Vj biggs toilet/comm ransfer 16:30: [id number] ode 00 Bed knowledge/s PT/OT: Bed Active 2019-0 Chris Mobility/Tr kill Mobility/T 10-14 Vj ansfer deficit: pt ransfer 16:30: [id number] 00 Bed bed PT/OT: Bed Active 2019-0 Chris Mobility/Tr mobility Mobility/T 10-14 Vj sheehanfer deficit ransfer 16:30: [id number] 00 Balance/End balance/respite coordinator PT/OT: Active 2019-0 Chris urance rdination Balance/En 10-14 Vj deficit durance 16:30: [id number] 00 Balance/End endurance PT/OT: Active 2019-0 Chris urance deficit Balance/En 10-14 Vj durance 16:30: [id number] 00 Balance/End knowledge/s PT/OT: Active 2019-0 Chris urance kill Balance/En 10-14 Vj deficit: pt durance 16:30: [id number] 00 Balance/End knowledge/s PT/OT: Active 2019-0 Chris urance kill Balance/En 10-14 Vj deficit: cg durance 16:30: [id number] 00 Gait/Locomo gait PT/OT: Active 2019-0 Chris tion assistive Gait/Locom - Vj problems device otion 16:30: [id number] present 00 Gait/Locomo knowledge/s PT/OT: Active 2019-0 Chris tion kill Gait/Locom - Vj problems deficit: pt otion 16:30: [id number] 00 Gait/Locomo gait PT/OT: Active 2019-0 Chris tion deficit Gait/Locom - Vj problems otion 16:30: [id number] 00 Respiratory oxygen Respirator Active 2020-0 Chris treatments y 2-13 Vj in home [id number] Bed transfer PT/OT: Bed Active 2020-0 Chris Mobility/Tr deficit: Mobility/T 2-20 Vj ansfer shower/tub ransfer 15:15: [id number] 00 Bed transfer PT/OT: Bed Active 2019- Chris Mobility/Tr deficit: Mobility/T 2-20 Vj biggs vehicle ransfer 15:15: [id number] 00 Gait/Locomo stair PT/OT: Active Chris tion management Gait/Locom 2-20 Vj problems req otion 15:15: [id number] 00 Allergies, Adverse Reactions, Alerts Allergy Allergy [...]
--- OUTSIDE RECORDS SUMMARY | 2019-12-21 18:12 | XMS REPORT ---
:1935 Author Organization [facility] Care Team Providers Name Role Phone Unavailable Unavailable Unavailable Problems Condition Condition Condition Status Onset Resolution Last Treating Comments Name Details Category Date Date Treatment Clinician Date Bifascicula Bifascicula Diagnosis Active Chris r block r block Vj [id number] Unspecified Unspecified Diagnosis Active Chris atrial atrial 10-13 Vj fibrillatio fibrillatio [id number] n n Heart Heart Diagnosis Active Chris failure, failure, -17 Vj unspecified unspecified [id number] Age-related Age-related Diagnosis Active Chris physical physical 09-24 Vj debility debility [id number] Pain in Pain in Diagnosis Active Chris right right 1 Vj shoulder shoulder [id number] Presence of Presence of Diagnosis Active Chris right right Vj artificial artificial [id number] hip joint hip joint long-term long-term Diagnosis Active Chris (current) (current) Vj use of use of [id number] anticoagula anticoagula nts nts Pain frequent Pain Mgmt Active Johana pain - (Mitchell) 09:50: Hassan 00 [id number] Cardio edema Cardiovasc Active Johana ular - (Mitchell) 09:50: Hassan 00 [id number] Respiratory dyspnea Respirator Active 0 Johana present y - (Mitchell) 09:50: Hassan 00 [id number] Endo/Basim anti-coagul Endo/Basim Active Johana ation - (Mitchell) therapy 09:50: Hassan 00 [id number] Sensory impaired Sensory Active 0 Johana hearing - (Mitchell) 09:50: Hassan 00 [id number] Integument skin Integument Active Johana integrity - (Mitchell) risk 09:50: Hassan [id number] Elimination urinary Eliminatio Active 2020-0 Johana incontinenc n 10-14 (Mitchell) e 09:50: Hassan [id number] Neuro confusion Neuro/Emot Active 2020-0 Johana present ion 10-14 (Mitchell) 09:50: Hassan [id number] Neuro impaired Neuro/Emot Active 2020-0 Johana decision-ma ion 10-14 (Mitchell) otilia 09:50: Hassan [id number] Neuro memory Neuro/Emot Active 2019-0 Johana deficit ion 10-14 (Mitchell) needing 09:50: Hassan supervision 00 [id number] Activity ADL Activity Active 2019-0 Johana assistance 10-14 (Mitchell) required 09:50: Hassan [id number] Activity self-care Activity Active 2019-0 Johana deficit 10-14 (Mitchell) 09:50: Hassan [id number] Safety cannot be Safety Active 2019-0 Johana left alone 10-14 (Mitchell) 09:50: Hassan [id number] Safety fall risk Safety Active 2020-0 Johana factor 10-14 (Mitchell) present 09:50: Hassan [id number] Safety risk for Safety Active 2019-0 Johana hospitaliza 10-14 (Mitchell) tion 09:50: Hassan [id number] Medication oral med Meds Active 2019-0 Jhoana assistance 10-14 (Mitchell) required 09:50: Hassan [id number] Musculoskel transfer Musculoske Active 2019-0 Johana etal assistance letal 10-14 (Mitchell) required 09:50: Hassan [id number] Musculoskel requires Musculoske Active 2019-0 Johana etal human letal 10-14 (Mitchell) assist to 09:50: Hassan leave home 00 [id number] Activity knowledge/s Activity Active 2020-0 Chris kill 10-14 Vj deficit: pt 16:30: [id number] 00 Safety knowledge/s Safety Active 2020-0 Chris kill 10-14 Vj deficit: pt 16:30: [id number] 00 Safety can be left Safety Active 2020-0 Chris alone for 10-14 Vj only short 16:30: [id number] periods 00 Bed mobility/tr PT/OT: Bed Active 2020-0 Chris Mobility/Tr ansfer Mobility/T 10-14 Vj ansfer device ransfer 16:30: [id number] present 00 Bed transfer PT/OT: Bed Active 2020-0 Chris Mobility/Tr deficit: Mobility/T 1- Vj biggs sit/stand ransfer 16:30: [id number] 00 Bed transfer PT/OT: Bed Active 2019-0 Chris Mobility/Tr deficit: Mobility/T 10-14 Vj biggs toilet/comm ransfer 16:30: [id number] ode 00 Bed knowledge/s PT/OT: Bed Active 2019-0 Chris Mobility/Tr kill Mobility/T 10-14 Vj ansfer deficit: pt ransfer 16:30: [id number] 00 Bed bed PT/OT: Bed Active 2019-0 Chris Mobility/Tr mobility Mobility/T 10-14 Vj sheehanfer deficit ransfer 16:30: [id number] 00 Balance/End balance/global coordinator PT/OT: Active 2019-0 Chris urance rdination Balance/En 10-14 Vj deficit durance 16:30: [id number] 00 Balance/End endurance PT/OT: Active 2019-0 Chris urance deficit Balance/En 10-14 Vj durance 16:30: [id number] 00 Balance/End knowledge/s PT/OT: Active 2019-0 Chris urance kill Balance/En 10-14 Vj deficit: pt durance 16:30: [id number] 00 Balance/End knowledge/s PT/OT: Active 2019-0 Chris urance kill Balance/En 10-14 Vj deficit: cg durance 16:30: [id number] 00 Gait/Locomo gait PT/OT: Active 2019-0 Chris tion assistive Gait/Locom - Vj problems device otion 16:30: [id number] present 00 Gait/Locomo knowledge/s PT/OT: Active 2019-0 Chris tion kill Gait/Locom - Vj problems deficit: pt otion 16:30: [id number] 00 Gait/Locomo gait PT/OT: Active 2019-0 Chris tion deficit Gait/Locom - Vj problems otion 16:30: [id number] 00 Respiratory oxygen Respirator Active 2020-0 Chris treatments y 2-13 Vj in home [id number] Bed transfer PT/OT: Bed Active 2020-0 Chris Mobility/Tr deficit: Mobility/T 2-20 Vj ansfer shower/tub ransfer 15:15: [id number] 00 Bed transfer PT/OT: Bed Active 2019- Chris Mobility/Tr deficit: Mobility/T 2-20 Vj biggs vehicle ransfer 15:15: [id number] 00 Gait/Locomo stair PT/OT: Active Chris tion management Gait/Locom 2-20 Vj problems req otion 15:15: [id number] 00 Allergies, Adverse Reactions, Alerts Allergy Allergy [...] oral powder apixaban 5 apixaban 5 Yes Jacquleine Unknown Unknown mg tablet mg tablet 10-14 [...]
--- OUTSIDE RECORDS SUMMARY | 2019-12-21 18:13 | XMS REPORT ---
:1935 Author Organization [facility] Care Team Providers Name Role Phone Unavailable Unavailable Unavailable Problems Condition Condition Condition Status Onset Resolution Last Treating Comments Name Details Category Date Date Treatment Clinician Date Bifascicula Bifascicula Diagnosis Active Chris r block r block Vj [id number] Unspecified Unspecified Diagnosis Active Chris atrial atrial 10-13 Vj fibrillatio fibrillatio [id number] n n Heart Heart Diagnosis Active Chris failure, failure, 10-10 Vj unspecified unspecified [id number] Age-related Age-related Diagnosis Active Chris physical physical 09-24 Vj debility debility [id number] Pain in Pain in Diagnosis Active Chris right right 09-24 Vj shoulder shoulder [id number] Presence of Presence of Diagnosis Active Chris right right Vj artificial artificial [id number] hip joint hip joint FDC FDC Diagnosis Active Chris (current) (current) Vj use of use of [id number] anticoagula anticoagula nts nts Pain frequent Pain Mgmt Active Johana pain - (Mitchell) 09:50: Hassan 00 [id number] Cardio edema Cardiovasc Active Johana ular - (Mitchell) 09:50: Hassan 00 [id number] Respiratory dyspnea Respirator Active 0 Johana present y - (Mitchell) 09:50: Hassan 00 [id number] Endo/Basim anti-coagul Endo/Basim Active Johana ation - (Mitchell) therapy 09:50: Hassan 00 [id number] Sensory impaired Sensory Active 0 Johana hearing - (Mitchell) 09:50: Hassan 00 [id number] Integument skin Integument Active Johana integrity - (Mitchell) risk 09:50: Hassan 00 [id number] Elimination urinary Eliminatio Active 2020-0 Johana incontinenc n 10-14 (Mitchell) e 09:50: Hassan [id number] Neuro confusion Neuro/Emot Active 2020-0 Johana present ion 10-14 (Mitchell) 09:50: Hassan [id number] Neuro impaired Neuro/Emot Active 2020-0 Johana decision-ma ion 10-14 (Mitchell) otilia 09:50: Hassan [id number] Neuro memory Neuro/Emot Active 2019-0 Johana deficit ion 10-14 (Mitchell) needing 09:50: Hassan supervision 00 [id number] Activity ADL Activity Active 2019-0 Johana assistance 10-14 (Mitchell) required 09:50: Hassan [id number] Activity self-care Activity Active 2019-0 Johana deficit 10-14 (Mitchell) 09:50: Hassan [id number] Safety cannot be Safety Active 2019-0 Johana left alone 10-14 (Mitchell) 09:50: Hassan [id number] Safety fall risk Safety Active 2020-0 Johana factor 10-14 (Mitchell) present 09:50: Hassan [id number] Safety risk for Safety Active 2019-0 Johana hospitaliza 10-14 (Mitchell) tion 09:50: Hassan [id number] Medication oral med Meds Active 2019-0 Johana assistance 10-14 (Mitchell) required 09:50: Hassan [id number] Musculoskel transfer Musculoske Active 2019-0 Johana etal assistance letal 10-14 (Mitchell) required 09:50: Hassan [id number] Musculoskel requires Musculoske Active 2019-0 Johana etal human letal 10-14 (Mitchell) assist to 09:50: Hassan leave home 00 [id number] Activity knowledge/s Activity Active 2020-0 Chris kill 10-14 Vj deficit: pt 16:30: [id number] 00 Safety knowledge/s Safety Active 2020-0 Chris kill 10-14 Vj deficit: pt 16:30: [id number] 00 Safety can be left Safety Active 2020-0 Chris alone for 10-14 Vj only short 16:30: [id number] periods 00 Bed mobility/tr PT/OT: Bed Active 2020-0 Chris Mobility/Tr ansfer Mobility/T 10-14 Vj ansfer device ransfer 16:30: [id number] present 00 Bed transfer PT/OT: Bed Active 2019-0 Chris Mobility/Tr deficit: Mobility/T - Vj biggs sit/stand ransfer 16:30: [id number] 00 Bed transfer PT/OT: Bed Active 2019-0 Chris Mobility/Tr deficit: Mobility/T 10-14 Vj biggs toilet/comm ransfer 16:30: [id number] ode 00 Bed knowledge/s PT/OT: Bed Active 2019-0 Chris Mobility/Tr kill Mobility/T 10-14 Vj ansfer deficit: pt ransfer 16:30: [id number] 00 Bed bed PT/OT: Bed Active 2019-0 Chris Mobility/Tr mobility Mobility/T 10-14 Vj sheehanfer deficit ransfer 16:30: [id number] 00 Balance/End balance/circular tank cooper PT/OT: Active 2019-0 Chris urance rdination Balance/En 10-14 Vj deficit durance 16:30: [id number] 00 Balance/End endurance PT/OT: Active 2019-0 Chris urance deficit Balance/En 10-14 Vj durance 16:30: [id number] 00 Balance/End knowledge/s PT/OT: Active 2019-0 Chris urance kill Balance/En 10-14 Vj deficit: pt durance 16:30: [id number] 00 Balance/End knowledge/s PT/OT: Active 2019-0 Chris urance kill Balance/En 10-14 Vj deficit: cg durance 16:30: [id number] 00 Gait/Locomo gait PT/OT: Active 2019-0 Chris tion assistive Gait/Locom 10-14 Vj problems device otion 16:30: [id number] present 00 Gait/Locomo knowledge/s PT/OT: Active 2019-0 Chris tion kill Gait/Locom 10-14 Vj problems deficit: pt otion 16:30: [id number] 00 Gait/Locomo gait PT/OT: Active 2019-0 Chris tion deficit Gait/Locom 10-14 Vj problems otion 16:30: [id number] 00 Respiratory oxygen Respirator Active 2020-0 Chris treatments y 2-13 Vj in home [id number] Allergies, Adverse Reactions, Alerts Allergy Allergy Status [...] Observation Time Observation Value Comments SYSTOLIC mm[Hg] 2019-11-12 18:10:28 122 mm[Hg] mm[Hg] Method: Sit SYSTOLIC mm[Hg] 2019-10-16 18:10:01 112 mm[Hg] mm[Hg] Method: Stand DIASTOLIC mm[Hg] 2019-11-12 18:10:28 86 mm[Hg] mm[Hg] Method: Sit DIASTOLIC mm[Hg] 2019-10-16 18:10:01 64 mm[Hg] mm[Hg] Method: Stand PULSE 2019-11-12 18:10:28 82 /min /min RESP RATE 2019-10-16 18:10:01 16 /min /min TEMP 2019-10-15 18:10:00 98.3 [degF] Procedures This patient has no known procedures. Results This patient has no known results.
--- OUTSIDE RECORDS SUMMARY | 2019-12-21 18:13 | XMS REPORT ---
:1935 Author Organization [facility] Care Team Providers Name Role Phone Unavailable Unavailable Unavailable Problems Condition Condition Condition Status Onset Resolution Last Treating Comments Name Details Category Date Date Treatment Clinician Date Bifascicula Bifascicula Diagnosis Active Chris r block r block Vj [id number] Unspecified Unspecified Diagnosis Active Chris atrial atrial 10-13 Vj fibrillatio fibrillatio [id number] n n Heart Heart Diagnosis Active Chris failure, failure, -17 Vj unspecified unspecified [id number] Age-related Age-related Diagnosis Active Chris physical physical 09-24 Vj debility debility [id number] Pain in Pain in Diagnosis Active Chris right right 1 Vj shoulder shoulder [id number] Presence of Presence of Diagnosis Active Chris right right Vj artificial artificial [id number] hip joint hip joint skilled nursing skilled nursing Diagnosis Active Chris (current) (current) Vj use of use of [id number] anticoagula anticoagula nts nts Pain frequent Pain Mgmt Active Johana pain - (Mitchell) 09:50: Hassan 00 [id number] Cardio edema Cardiovasc Active Johana ular - (Mitchell) 09:50: Hassan 00 [id number] Respiratory dyspnea Respirator Active 0 Johana present y - (Mitchell) 09:50: Hassan 00 [id number] Endo/Basim anti-coagul Endo/Basim Active Johana ation - (Mitchell) therapy 09:50: Hassan 00 [id number] Sensory impaired Sensory Active 0 Johana hearing - (Mitchell) 09:50: Hassan 00 [id number] Integument skin Integument Active Johana integrity - (Mitchell) risk 09:50: Hassan [id number] Elimination urinary Eliminatio Active 2020-0 Johana incontinenc n 10-14 (Mitchell) e 09:50: Hassan [id number] Neuro confusion Neuro/Emot Active 2020-0 Johana present ion 10-14 (Mitchell) 09:50: Hassan [id number] Neuro impaired Neuro/Emot Active 2020-0 Johana decision-ma ion 10-14 (Mitchell) otilia 09:50: Hassan [id number] Neuro memory Neuro/Emot Active 2019-0 Johana deficit ion 10-14 (Mitchell) needing 09:50: Hassan supervision 00 [id number] Activity ADL Activity Active 2019-0 Johana assistance 10-14 (Mitchell) required 09:50: Hassan [id number] Activity self-care Activity Active 2019-0 Johana deficit 10-14 (Mitchell) 09:50: Hassan [id number] Safety cannot be Safety Active 2019-0 Johana left alone 10-14 (Mitchell) 09:50: Hassan [id number] Safety fall risk Safety Active 2020-0 Johana factor 10-14 (Mitchell) present 09:50: Hassan [id number] Safety risk for Safety Active 2019-0 Johana hospitaliza 10-14 (Mitchell) tion 09:50: Hassan [id number] Medication oral med Meds Active 2019-0 Johana assistance 10-14 (Mitchell) required 09:50: Hassan [id number] Musculoskel transfer Musculoske Active 2019-0 Johana etal assistance letal 10-14 (Mitchell) required 09:50: Hassan [id number] Musculoskel requires Musculoske Active 2019-0 Johana etal human letal 10-14 (Mitchell) assist to 09:50: Hassan leave home 00 [id number] Activity knowledge/s Activity Active 2020-0 Chris kill 10-14 Vj deficit: pt 16:30: [id number] Safety knowledge/s Safety Active 2020-0 Chris kill 10-14 Vj deficit: pt 16:30: [id number] Safety can be left Safety Active 2020-0 Chris alone for 10-14 Vj only short 16:30: [id number] periods 00 Bed mobility/tr PT/OT: Bed Active 2020-0 Chris Mobility/Tr ansfer Mobility/T 10-14 Vj ansfer device ransfer 16:30: [id number] present 00 Bed transfer PT/OT: Bed Active 2020-0 Chris Mobility/Tr deficit: Mobility/T 1- Vj biggs sit/stand ransfer 16:30: [id number] 00 Bed transfer PT/OT: Bed Active 2019-0 Chris Mobility/Tr deficit: Mobility/T 10-14 Vj biggs toilet/comm ransfer 16:30: [id number] ode 00 Bed knowledge/s PT/OT: Bed Active 2019-0 Chris Mobility/Tr kill Mobility/T 10-14 Vj ansfer deficit: pt ransfer 16:30: [id number] 00 Bed bed PT/OT: Bed Active 2019-0 Chris Mobility/Tr mobility Mobility/T 10-14 Vj sheehanfer deficit ransfer 16:30: [id number] 00 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 PT/OT: Active 2019-0 Chris urance rdination Balance/En 10-14 Vj deficit durance 16:30: [id number] 00 Balance/End endurance PT/OT: Active 2019-0 Chris urance deficit Balance/En 10-14 Vj durance 16:30: [id number] 00 Balance/End knowledge/s PT/OT: Active 2019-0 Chris urance kill Balance/En 10-14 Vj deficit: pt durance 16:30: [id number] 00 Balance/End knowledge/s PT/OT: Active 2019-0 Chris urance kill Balance/En 10-14 Vj deficit: cg durance 16:30: [id number] 00 Gait/Locomo gait PT/OT: Active 2019-0 Chris tion assistive Gait/Locom - Vj problems device otion 16:30: [id number] present 00 Gait/Locomo knowledge/s PT/OT: Active 2019-0 Chris tion kill Gait/Locom - Vj problems deficit: pt otion 16:30: [id number] 00 Gait/Locomo gait PT/OT: Active 2019-0 Chris tion deficit Gait/Locom - Vj problems otion 16:30: [id number] 00 Respiratory oxygen Respirator Active 2020-0 Chris treatments y 2-13 Vj in home [id number] Bed transfer PT/OT: Bed Active 2020-0 Chris Mobility/Tr deficit: Mobility/T 2-20 Vj ansfer shower/tub ransfer 15:15: [id number] 00 Bed transfer PT/OT: Bed Active 2019- Chris Mobility/Tr deficit: Mobility/T 2-20 Vj biggs vehicle ransfer 15:15: [id number] 00 Gait/Locomo stair PT/OT: Active Chris tion management Gait/Locom 2-20 Vj problems req otion 15:15: [id number] 00 Allergies, Adverse Reactions, Alerts Allergy Allergy [...]
--- OUTSIDE RECORDS SUMMARY | 2019-12-21 18:13 | XMS REPORT ---
:1935 Author Organization [facility] Care Team Providers Name Role Phone Unavailable Unavailable Unavailable Problems Condition Condition Condition Status Onset Resolution Last Treating Comments Name Details Category Date Date Treatment Clinician Date Bifascicula Bifascicula Diagnosis Active Chris r block r block Vj [id number] Unspecified Unspecified Diagnosis Active Chris atrial atrial 10-13 Vj fibrillatio fibrillatio [id number] n n Heart Heart Diagnosis Active Chris failure, failure, -17 Vj unspecified unspecified [id number] Age-related Age-related Diagnosis Active Chris physical physical 09-24 Vj debility debility [id number] Pain in Pain in Diagnosis Active Chris right right 1 Vj shoulder shoulder [id number] Presence of Presence of Diagnosis Active Chris right right Vj artificial artificial [id number] hip joint [facility] joint [facility] Diagnosis Active Chris (current) (current) Vj use of use of [id number] anticoagula anticoagula nts nts Pain frequent Pain Mgmt Active Johana pain - (Mitchell) 09:50: Hassan 00 [id number] Cardio edema Cardiovasc Active Johana ular - (Mitchell) 09:50: Hassan 00 [id number] Respiratory dyspnea Respirator Active 0 Johana present y - (Mitchell) 09:50: Hassan 00 [id number] Endo/Basim anti-coagul Endo/Basim Active Johana ation - (Mithcell) therapy 09:50: Hassan 00 [id number] Sensory impaired Sensory Active 0 Johana hearing - (Mitchell) 09:50: Hassan 00 [id number] Integument skin Integument Active Johana integrity - (Mitchell) risk 09:50: Hassan 00 [id number] Elimination urinary Eliminatio Active 2020-0 Johana incontinenc n 10-14 (Mitchell) e 09:50: Hassan [id number] Neuro confusion Neuro/Emot Active 2020-0 Johana present ion 10-14 (Mitchell) 09:50: Hassan [id number] Neuro impaired Neuro/Emot Active 2020-0 Johana decision-ma ion 10-14 (Mitchell) otilia 09:50: Hassan [id number] Neuro memory Neuro/Emot Active 2019-0 Johana deficit ion 10-14 (Mitchell) needing 09:50: Hassan supervision 00 [id number] Activity ADL Activity Active 2019-0 Joahna assistance 10-14 (Mitchell) required 09:50: Hassan [id number] Activity self-care Activity Active 2019-0 Johana deficit 10-14 (Mitchell) 09:50: Hassan [id number] Safety cannot be Safety Active 2019-0 Johana left alone 10-14 (Mitchell) 09:50: Hassan [id number] Safety fall risk Safety Active 2020-0 Johana factor 10-14 (Mitchell) present 09:50: Hassan [id number] Safety risk for Safety Active 2019-0 Johana hospitaliza 10-14 (Mitchell) tion 09:50: Hassan [id number] Medication oral med Meds Active 2019-0 Johana assistance 10-14 (Mitchell) required 09:50: Hassan [id number] Musculoskel transfer Musculoske Active 2019-0 Johana etal assistance letal 10-14 (Mitchell) required 09:50: Hassan [id number] Musculoskel requires Musculoske Active 2019-0 Johana etal human letal 10-14 (Mitchell) assist to 09:50: Hassan leave home 00 [id number] Activity knowledge/s Activity Active 2020-0 Chris kill 10-14 Vj deficit: pt 16:30: [id number] 00 Safety knowledge/s Safety Active 2020-0 Chris kill 10-14 Vj deficit: pt 16:30: [id number] Safety can be left Safety Active 2020-0 Chris alone for 10-14 Vj only short 16:30: [id number] periods 00 Bed mobility/tr PT/OT: Bed Active 2020-0 Chris Mobility/Tr ansfer Mobility/T 10-14 Vj ansfer device ransfer 16:30: [id number] present 00 Bed transfer PT/OT: Bed Active 2019-0 Chris Mobility/Tr deficit: Mobility/T - Vj biggs sit/stand ransfer 16:30: [id number] 00 Bed transfer PT/OT: Bed Active 2019-0 Chris Mobility/Tr deficit: Mobility/T 10-14 Vj biggs toilet/comm ransfer 16:30: [id number] ode 00 Bed knowledge/s PT/OT: Bed Active 2019-0 Chris Mobility/Tr kill Mobility/T 10-14 Vj ansfer deficit: pt ransfer 16:30: [id number] 00 Bed bed PT/OT: Bed Active 2019-0 Chris Mobility/Tr mobility Mobility/T 10-14 Vj sheehanfer deficit ransfer 16:30: [id number] 00 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: Active 2019-0 Chris urance rdination Balance/En 10-14 Vj deficit durance 16:30: [id number] 00 Balance/End endurance PT/OT: Active 2019-0 Chris urance deficit Balance/En 10-14 Vj durance 16:30: [id number] 00 Balance/End knowledge/s PT/OT: Active 2019-0 Chris urance kill Balance/En 10-14 Vj deficit: pt durance 16:30: [id number] 00 Balance/End knowledge/s PT/OT: Active 2019-0 Chris urance kill Balance/En 10-14 Vj deficit: cg durance 16:30: [id number] 00 Gait/Locomo gait PT/OT: Active 2019-0 Chris tion assistive Gait/Locom 10-14 Vj problems device otion 16:30: [id number] present 00 Gait/Locomo knowledge/s PT/OT: Active 2019-0 Chris tion kill Gait/Locom 10-14 Vj problems deficit: pt otion 16:30: [id number] 00 Gait/Locomo gait PT/OT: Active 2019-0 Chris tion deficit Gait/Locom 10-14 Vj problems otion 16:30: [id number] 00 Respiratory oxygen Respirator Active 2020-0 Chris treatments y 2-13 Vj in home [id number] Allergies, Adverse Reactions, Alerts Allergy Allergy Status [...]
--- OUTSIDE RECORDS SUMMARY | 2019-12-21 18:13 | XMS REPORT ---
:1935 Author Organization [facility] Care Team Providers Name Role Phone Unavailable Unavailable Unavailable Problems Condition Condition Condition Status Onset Resolution Last Treating Comments Name Details Category Date Date Treatment Clinician Date Bifascicula Bifascicula Diagnosis Active Chris r block r block Vj [id number] Unspecified Unspecified Diagnosis Active Chris atrial atrial 10-13 Vj fibrillatio fibrillatio [id number] n n Heart Heart Diagnosis Active Chris failure, failure, -17 Vj unspecified unspecified [id number] Age-related Age-related Diagnosis Active Chris physical physical 09-24 Vj debility debility [id number] Pain in Pain in Diagnosis Active Chris right right 1 Vj shoulder shoulder [id number] Presence of Presence of Diagnosis Active Chris right right Vj artificial artificial [id number] hip joint hip joint residential residential Diagnosis Active Chris (current) (current) Vj use of use of [id number] anticoagula anticoagula nts nts Pain frequent Pain Mgmt Active Johana pain - (Mitchell) 09:50: Hassan 00 [id number] Cardio edema Cardiovasc Active Johana ular - (Mitchell) 09:50: Hassan 00 [id number] Respiratory dyspnea Respirator Active 0 Johana present y - (Mitchell) 09:50: Hassan 00 [id number] Endo/Basim anti-coagul Endo/Basim Active Johana ation - (Mitchell) therapy 09:50: Hassan 00 [id number] Sensory impaired Sensory Active 0 Johana hearing - (Mitchell) 09:50: Hassan 00 [id number] Integument skin Integument Active Johana integrity - (Mitchell) risk 09:50: Hassan 00 [id number] Elimination urinary Eliminatio Active 2020-0 Johana incontinenc n 10-14 (Imtchell) e 09:50: Hassan [id number] Neuro confusion Neuro/Emot Active 2020-0 Johana present ion 10-14 (Mitchell) 09:50: Hassan [id number] Neuro impaired Neuro/Emot Active 2020-0 Johana decision-ma ion 10-14 (Mitchell) otilia 09:50: Hassan [id number] Neuro memory Neuro/Emot Active 2019-0 Johana deficit ion 10-14 (Mitchell) needing 09:50: Hassan supervision 00 [id number] Activity ADL Activity Active 2019-0 Johana assistance 10-14 (Mitchell) required 09:50: Hassan [id number] Activity self-care Activity Active 2019-0 Johana deficit 10-14 (Mitchell) 09:50: Hassan [id number] Safety cannot be Safety Active 2019-0 Johana left alone 10-14 (Mitchell) 09:50: Hassan [id number] Safety fall risk Safety Active 2020-0 Johana factor 10-14 (Mtichell) present 09:50: Hassan [id number] Safety risk for Safety Active 2019-0 Johana hospitaliza 10-14 (Mitchell) tion 09:50: Hassan [id number] Medication oral med Meds Active 2019-0 Johana assistance 10-14 (Mitchell) required 09:50: Hassan [id number] Musculoskel transfer Musculoske Active 2019-0 Johana etal assistance letal 10-14 (Mitchell) required 09:50: Hassan [id number] Musculoskel requires Musculoske Active 2019-0 Johana etal human letal 10-14 (Mitchell) assist to 09:50: Hassan leave home 00 [id number] Activity knowledge/s Activity Active 2020-0 Chris kill 10-14 Vj deficit: pt 16:30: [id number] 00 Safety knowledge/s Safety Active 2020-0 Chris kill 10-14 Vj deficit: pt 16:30: [id number] 00 Safety can be left Safety Active 2020-0 Chris alone for 10-14 Vj only short 16:30: [id number] periods 00 Bed mobility/tr PT/OT: Bed Active 2020-0 Chris Mobility/Tr ansfer Mobility/T 10-14 Vj ansfer device ransfer 16:30: [id number] present 00 Bed transfer PT/OT: Bed Active 2019-0 Chris Mobility/Tr deficit: Mobility/T - Vj biggs sit/stand ransfer 16:30: [id number] 00 Bed transfer PT/OT: Bed Active 2019-0 Chris Mobility/Tr deficit: Mobility/T 10-14 Vj biggs toilet/comm ransfer 16:30: [id number] ode 00 Bed knowledge/s PT/OT: Bed Active 2019-0 Chris Mobility/Tr kill Mobility/T 10-14 Vj ansfer deficit: pt ransfer 16:30: [id number] 00 Bed bed PT/OT: Bed Active 2019-0 Chris Mobility/Tr mobility Mobility/T 10-14 Vj sheehanfer deficit ransfer 16:30: [id number] 00 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/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/OT: Active 2019-0 Chris urance rdination Balance/En 10-14 Vj deficit durance 16:30: [id number] 00 Balance/End endurance PT/OT: Active 2019-0 Chris urance deficit Balance/En 10-14 Vj durance 16:30: [id number] 00 Balance/End knowledge/s PT/OT: Active 2019-0 Chris urance kill Balance/En 10-14 Vj deficit: pt durance 16:30: [id number] 00 Balance/End knowledge/s PT/OT: Active 2019-0 Chris urance kill Balance/En 10-14 Vj deficit: cg durance 16:30: [id number] 00 Gait/Locomo gait PT/OT: Active 2019-0 Chris tion assistive Gait/Locom 10-14 Vj problems device otion 16:30: [id number] present 00 Gait/Locomo knowledge/s PT/OT: Active 2019-0 Chris tion kill Gait/Locom 10-14 Vj problems deficit: pt otion 16:30: [id number] 00 Gait/Locomo gait PT/OT: Active 2019-0 Chris tion deficit Gait/Locom 10-14 Vj problems otion 16:30: [id number] 00 Respiratory oxygen Respirator Active 2020-0 Chris treatments y 2-13 Vj in home [id number] Allergies, Adverse Reactions, Alerts Allergy Allergy Status [...]
--- OUTSIDE RECORDS SUMMARY | 2019-12-21 18:13 | XMS REPORT ---
:1937 Author Organization [facility] Care Team Providers Name Role Phone Unavailable Unavailable Unavailable Problems Condition Condition Condition Status Onset Resolution Last Treating Comments Name Details Category Date Date Treatment Clinician Date Bifascicula Bifascicula Diagnosis Active Chris r block r block Vj [id number] Unspecified Unspecified Diagnosis Active Chris atrial atrial 10-13 Vj fibrillatio fibrillatio [id number] n n Heart Heart Diagnosis Active Chris failure, failure, -17 Vj unspecified unspecified [id number] Age-related Age-related Diagnosis Active Chris physical physical 09-24 Vj debility debility [id number] Pain in Pain in Diagnosis Active Chris right right 1 Vj shoulder shoulder [id number] Presence of Presence of Diagnosis Active Chris right right Vj artificial artificial [id number] hip joint hip joint assisted assisted Diagnosis Active Chris (current) (current) Vj use of use of [id number] anticoagula anticoagula nts nts Pain frequent Pain Mgmt Active Johana pain - (Mitchell) 09:50: Hassan 00 [id number] Cardio edema Cardiovasc Active Johana ular - (Mitchell) 09:50: Hassan 00 [id number] Respiratory dyspnea Respirator Active 0 Johana present y - (Mitchell) 09:50: Hassan 00 [id number] Endo/Basim anti-coagul Endo/Basim Active Johana ation - (Mitchell) therapy 09:50: Hassan 00 [id number] Sensory impaired Sensory Active 0 Johana hearing - (Mitchell) 09:50: Hassan 00 [id number] Integument skin Integument Active Johana integrity - (Mitchell) risk 09:50: Hassan 00 [id number] Elimination urinary Eliminatio Active 2020-0 Johana incontinenc n 10-14 (Mitchell) e 09:50: Hassan [id number] Neuro confusion Neuro/Emot Active 2020-0 Johana present ion 10-14 (Mitchell) 09:50: Hassan [id number] Neuro impaired Neuro/Emot Active 2020-0 Johana decision-ma ion 10-14 (Mitchell) otilia 09:50: Hassan [id number] Neuro memory Neuro/Emot Active 2019-0 Johana deficit ion 10-14 (Mitchell) needing 09:50: Hassan supervision 00 [id number] Activity ADL Activity Active 2019-0 Johana assistance 10-14 (Mitchell) required 09:50: Hassan [id number] Activity self-care Activity Active 2019-0 Johana deficit 10-14 (Mitchell) 09:50: Hassan [id number] Safety cannot be Safety Active 2019-0 Johana left alone 10-14 (Mitchell) 09:50: Hassan [id number] Safety fall risk Safety Active 2020-0 Johana factor 10-14 (Mitchell) present 09:50: Hassan [id number] Safety risk for Safety Active 2019-0 Johana hospitaliza 10-14 (Mitchell) tion 09:50: Hassan [id number] Medication oral med Meds Active 2019-0 Johana assistance 10-14 (Mitchell) required 09:50: Hassan [id number] Musculoskel transfer Musculoske Active 2019-0 Johana etal assistance letal 10-14 (Mitchell) required 09:50: Hassan [id number] Musculoskel requires Musculoske Active 2019-0 Johana etal human letal 10-14 (Mitchell) assist to 09:50: Hassan leave home 00 [id number] Activity knowledge/s Activity Active 2020-0 Chris kill 10-14 Vj deficit: pt 16:30: [id number] 00 Safety knowledge/s Safety Active 2020-0 Chris kill 10-14 Vj deficit: pt 16:30: [id number] 00 Safety can be left Safety Active 2020-0 Chris alone for 10-14 Vj only short 16:30: [id number] periods 00 Bed mobility/tr PT/OT: Bed Active 2020-0 Chris Mobility/Tr ansfer Mobility/T 10-14 Vj ansfer device ransfer 16:30: [id number] present 00 Bed transfer PT/OT: Bed Active 2019-0 Chris Mobility/Tr deficit: Mobility/T - Vj biggs sit/stand ransfer 16:30: [id number] 00 Bed transfer PT/OT: Bed Active 2019-0 Chris Mobility/Tr deficit: Mobility/T 10-14 Vj biggs toilet/comm ransfer 16:30: [id number] ode 00 Bed knowledge/s PT/OT: Bed Active 2019-0 Chris Mobility/Tr kill Mobility/T 10-14 Vj ansfer deficit: pt ransfer 16:30: [id number] 00 Bed bed PT/OT: Bed Active 2019-0 Chris Mobility/Tr mobility Mobility/T 10-14 Vj sheehanfer deficit ransfer 16:30: [id number] 00 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/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 PT/OT: Active 2019-0 Chris urance rdination Balance/En 10-14 Vj deficit durance 16:30: [id number] 00 Balance/End endurance PT/OT: Active 2019-0 Chris urance deficit Balance/En 10-14 Vj durance 16:30: [id number] 00 Balance/End knowledge/s PT/OT: Active 2019-0 Chris urance kill Balance/En 10-14 Vj deficit: pt durance 16:30: [id number] 00 Balance/End knowledge/s PT/OT: Active 2019-0 Chris urance kill Balance/En 10-14 Vj deficit: cg durance 16:30: [id number] 00 Gait/Locomo gait PT/OT: Active 2019-0 Chris tion assistive Gait/Locom 10-14 Vj problems device otion 16:30: [id number] present 00 Gait/Locomo knowledge/s PT/OT: Active 2019-0 Chris tion kill Gait/Locom 10-14 Vj problems deficit: pt otion 16:30: [id number] 00 Gait/Locomo gait PT/OT: Active 2019-0 Chris tion deficit Gait/Locom 10-14 Vj problems otion 16:30: [id number] 00 Respiratory oxygen Respirator Active 2020-0 Chris treatments y 2-13 Vj in home [id number] Allergies, Adverse Reactions, Alerts Allergy Allergy Status [...]
--- OUTSIDE RECORDS SUMMARY | 2019-12-21 18:13 | XMS REPORT ---
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 n n Heart Heart Diagnosis Active Chris failure, failure, -17 Vj unspecified unspecified [id number] Age-related Age-related Diagnosis Active Chris physical physical 09-24 Vj debility debility [id number] Pain in Pain in Diagnosis Active Chris right right 1 Vj shoulder shoulder [id number] Presence of Presence of Diagnosis Active Chris right right Vj artificial artificial [id number] hip joint hip joint [facility] Diagnosis Active Chris (current) (current) Vj use of use of [id number] anticoagula anticoagula nts nts Pain frequent Pain Mgmt Active Johana pain - (Mitchell) 09:50: Hassan 00 [id number] Cardio edema Cardiovasc Active Johana ular - (Mitchell) 09:50: Hassan 00 [id number] Respiratory dyspnea Respirator Active 0 Johana present y - (Mitchell) 09:50: Hassan 00 [id number] Endo/Basim anti-coagul Endo/Basim Active Johana ation - (Mitchell) therapy 09:50: Hassan 00 [id number] Sensory impaired Sensory Active 0 Johana hearing - (Mitchell) 09:50: Hassan 00 [id number] Integument skin Integument Active Johana integrity - (Mitchell) risk 09:50: Hassan [id number] Elimination urinary Eliminatio Active 2020-0 Johana incontinenc n 10-14 (Mitchell) e 09:50: Hassan [id number] Neuro confusion Neuro/Emot Active 2020-0 Johana present ion 10-14 (Mitchell) 09:50: Hassan [id number] Neuro impaired Neuro/Emot Active 2020-0 Johana decision-ma ion 10-14 (Mitchell) otilia 09:50: Hassan [id number] Neuro memory Neuro/Emot Active 2019-0 Johana deficit ion 10-14 (Mitchell) needing 09:50: Hassan supervision 00 [id number] Activity ADL Activity Active 2019-0 Johana assistance 10-14 (Mitchell) required 09:50: Hassan [id number] Activity self-care Activity Active 2019-0 Johana deficit 10-14 (Mitchell) 09:50: Hassan [id number] Safety cannot be Safety Active 2019-0 Johana left alone 10-14 (Mitchell) 09:50: Hassan [id number] Safety fall risk Safety Active 2020-0 Johana factor 10-14 (Mitchell) present 09:50: Hassan [id number] Safety risk for Safety Active 2019-0 Johana hospitaliza 10-14 (Mitchell) tion 09:50: Hassan [id number] Medication oral med Meds Active 2019-0 Johana assistance 10-14 (Mitchell) required 09:50: Hassan [id number] Musculoskel transfer Musculoske Active 2019-0 Johana etal assistance letal 10-14 (Mitchell) required 09:50: Hassan [id number] Musculoskel requires Musculoske Active 2019-0 Johana etal human letal 10-14 (Mitchell) assist to 09:50: Hassan leave home 00 [id number] Activity knowledge/s Activity Active 2020-0 Chris kill 10-14 Jv deficit: pt 16:30: [id number] Safety knowledge/s Safety Active 2020-0 Chris kill 10-14 Vj deficit: pt 16:30: [id number] Safety can be left Safety Active 2020-0 Chris alone for 10-14 Vj only short 16:30: [id number] periods 00 Bed mobility/tr PT/OT: Bed Active 2020-0 Chris Mobility/Tr ansfer Mobility/T 10-14 Vj ansfer device ransfer 16:30: [id number] present 00 Bed transfer PT/OT: Bed Active 2019-0 Chris Mobility/Tr deficit: Mobility/T - Vj biggs sit/stand ransfer 16:30: [id number] 00 Bed transfer PT/OT: Bed Active 2019-0 Chris Mobility/Tr deficit: Mobility/T 10-14 Vj biggs toilet/comm ransfer 16:30: [id number] ode 00 Bed knowledge/s PT/OT: Bed Active 2019-0 Chris Mobility/Tr kill Mobility/T 10-14 Vj ansfer deficit: pt ransfer 16:30: [id number] 00 Bed bed PT/OT: Bed Active 2019-0 Chris Mobility/Tr mobility Mobility/T 10-14 Vj sheehanfer deficit ransfer 16:30: [id number] 00 Balance/End balance/pantry cook PT/OT: Active 2019-0 Chris urance rdination Balance/En 10-14 Vj deficit durance 16:30: [id number] 00 Balance/End endurance PT/OT: Active 2019-0 Chris urance deficit Balance/En 10-14 Vj durance 16:30: [id number] 00 Balance/End knowledge/s PT/OT: Active 2019-0 Chris urance kill Balance/En 10-14 Vj deficit: pt durance 16:30: [id number] 00 Balance/End knowledge/s PT/OT: Active 2019-0 Chris urance kill Balance/En 10-14 Vj deficit: cg durance 16:30: [id number] 00 Gait/Locomo gait PT/OT: Active 2019-0 Chris tion assistive Gait/Locom 10-14 Vj problems device otion 16:30: [id number] present 00 Gait/Locomo knowledge/s PT/OT: Active 2019-0 Chris tion kill Gait/Locom 10-14 Vj problems deficit: pt otion 16:30: [id number] 00 Gait/Locomo gait PT/OT: Active 2019-0 Chris tion deficit Gait/Locom 10-14 Vj problems otion 16:30: [id number] 00 Respiratory oxygen Respirator Active 2020-0 Chris treatments y 2-13 Vj in home [id number] Allergies, Adverse Reactions, Alerts Allergy Allergy Status [...] Observation Time Observation Value Comments SYSTOLIC mm[Hg] 2019-11-06 18:10:22 120 mm[Hg] mm[Hg] Method: Sit SYSTOLIC mm[Hg] 2019-10-16 18:10:01 112 mm[Hg] mm[Hg] Method: Stand DIASTOLIC mm[Hg] 2019-11-06 18:10:22 72 mm[Hg] mm[Hg] Method: Sit DIASTOLIC mm[Hg] 2019-10-16 18:10:01 64 mm[Hg] mm[Hg] Method: Stand PULSE 2019-11-06 18:10:22 71 /min /min RESP RATE 2019-10-16 18:10:01 16 /min /min TEMP 2019-10-15 18:10:00 98.3 [degF] Procedures This patient has no known procedures. Results This patient has no known results.
--- OUTSIDE RECORDS SUMMARY | 2019-12-21 18:13 | XMS REPORT | Continuity of Care Document ---
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 duration: lifetime - last seen 10/06/2019 Eliquis take one tablet by 60tabs Newton Pulido 5mg Tablets mouth twice a day MD Jacqueline History Medications Bactrim DS twice a day 14tabs Newton Phillips, 10/29/2019 - 800-160mg 11/14/2019 Tablets Immunizations Description No Information Available Vital Signs Date Vital Result Comment 11/14/2019 2:58pm BP Systolic 130 mmHg BP Diastolic 72 mmHg Heart Rate 107 /min Body Temperature 98.2 F Respiratory Rate 16 /min Height 68 inches 5'8" measured Weight 235.00 lb BMI (Body Mass Index) 35.7 kg/m2 10/23/2019 4:45pm BP Systolic 132 mmHg BP Diastolic 82 mmHg Heart Rate 98 /min Body Temperature 98.1 F O2 % BldC Oximetry 97 % Height 68 inches 5'8" measured Weight 232.00 lb BMI (Body Mass Index) 35.3 kg/m2 Results Test Acquired Date Facility Test Result H/L Range Note Ua - Micro (Fma) 10/27/2019 family medicine Appearance cloudy (607)- - Color yellow Glucose, Urine (Fma/CMC/CTX) neg Bilirubin neg Ketones neg SP Grav 1.025 Blood trace PH 5.5 Protein neg Urobil 0.2 Nitrite neg Leukocytes (Fma/CMC/Centrex) neg Hyaline - /Lpf Granular - /Lpf WBC (Fma,Centrex) 0-1 RBC 0-1 Mucus (Fma/CBC/Centrex) - /Lpf Epith - /Lpf Bacteria trace /Hpf Amorphous (Fma/CMC/Centrex) lrg amt /Lpf Crystals, Fluid (Fma/CMC/CTX) - Urine Culture And Sensitivities 10/27/2019 [facility] Urine Culture SEE RESULT BELOW 1 1 SEE RESULT BELOW Name: ELVIE YEBOAH : [address]: Newton Phillips MD Acct: [id number] Unit: [id number] AGE: 84 Location: [facility] Re10/27/19 SEX: M Status: REG REF SPEC: [id number] [place]: 10/27/[address] [facility] [address]: Newton Phillips MD REQ: [id number] RECD: 10/27/19 STATUS: COMP _ SOURCE: URINE SPDESC: ORDERED: Urine Culture COMMENTS: 1 arteaga top [id number] Urine Source: Random Procedure Result Reported Site Urine Culture Final 10/29/19- 0840 ML Organism 1 [facility] Altheimer Count 75-100,000 (Many) CFU/ML 1. [facility].I[facility] RX --------- ------ Ampicillin R Cefazolin >=64 R Cefepime <=1 S Ceftriaxone <=1 S Ciprofloxacin 2 I Gentamicin R Levofloxacin 4 I Meropenem <=0.25 S Nitrofurantoin 256 R Tetracycline >=16 R Pipercillin/Tazobactam <=4 S Trimethoprim/Sulfamethoxazole <=20 S Aztreonam <=1 S Contact the Microbiology Department for any additional antibiotic reporting. * ML - Main Lab . END OF REPORT DEPARTMENT OF PATHOLOGY, [address] [place] [address] Tam Apple M.D. 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, lumbar region 10/27/2019 R10.84 Generalized abdominal pain Newton Phillips MD 10/23/2019 R10.84 Generalized abdominal pain Newton Phillips MD 10/23/2019 R54 Age-related physical debility Newton Phillips MD 10/06/2019 R54 Age-related physical debility Newton Phillips MD 10/06/2019 Z96.641 Presence of right artificial hip joint Newton Phillips MD Plan of Treatment Future Appointment(s):12/08/2019 3:40 pm - Newton Phillips MD at [facility]7311/14/2019 - Newton Phillips, MDM47.816 Spondylosis without myelopathy or radiculopathy, lumbar regionAllComments:Medication Management Patient Understands medications he's taking? Yes No Are there Barriersto Adherence? Yes No Has the patient been asked about herbal supplements and therapies, and OTC meds? Yes No Functional Status Description No Information Available Mental Status Description No Information Available Referrals Refer to Reason for Referral Status Appt Date [facility] consult and tx-back pain and bilateral hip Created pain--pts son will call to schedule [address] [place] [address] [phone] [facility] Consult and treat. Office note and Scheduled 2019 triage faxed. [address] [place] [address] [phone]
[2019-12-21 18:42] VITALS: BP 150/66
== END 2019-12-21 18:42 | disposition home or self-care (01) ==
LOC: ED 17:08
DX: R51 Headache (principal); I48.91 Unspecified atrial fibrillation; M54.2 Cervicalgia; I50.9 Heart failure, unspecified; Z87.891 Personal history of nicotine dependence; Z79.01 Long term (current) use of anticoagulants; Z91.81 History of falling
CPT/HCPCS: 70450; 72125; 99282